=== PATIENT | male | born 1940 | race Caucasian/White ===

== ENCOUNTER 2024-02-12 09:55 | Inpatient (IN) | payer OTHER, SELFPAY ==
[2024-02-12] VITALS (13 sets, daily range): BP systolic 92–185; BP diastolic 45–174; BMI 30.5; BMI 33.2
[2024-02-12 05:11] LABS: % Basophils 0.4 % (0-2); % Eosinophils 1.1 % (0-6); % Immature Granulocytes 0.5 % (0-0.5); % Lymphocytes 4.6 % (20.5-51.1); % Monocytes 0.4 % (1.7-9.3); Absolute Eosinophils 0.1 10^3/uL (0-0.7); Absolute Lymphocytes 0.3 10^3/uL (1.2-3.4); Absolute Neutrophils 5.1 10^3/uL (1.4-6.5); Hematocrit 43.3 % (39.0-52.0); Hemoglobin 15.2 g/dL (13.0-18.0); Mean Corp Hgb Conc. 35.1 g/dL (33.0-37.0); Mean Corpuscular Hgb 31.3 pg (27.0-31.0); Mean Corpuscular Volume 89.3 fL (80.0-94.0); Mean Platelet Volume 8.8 fL (7.4-10.4); Nucleated Red Blood Cells % 0 % (-); Platelet Count 131 10^3/uL (130-400); Red Blood Cell Count 4.85 10^6/uL (4.70-6.10); Red Cell Dist. Width 13.7 % (11.5-14.5); White Blood Cell Count 5.5 10^3/uL (4.8-10.8)
[2024-02-12 05:14] LABS: Lactic Acid 3.5 mmol/L (0.7-2.0)
[2024-02-12 05:15] LABS: ALT (SGPT) 20 U/L (0-50); AST (SGOT) 26 U/L (17-59); Albumin 4.1 g/dl (3.5-5.0); Alkaline Phosphatase 51 U/L (38-126); Blood Urea Nitrogen 16 mg/dl (9-20); Calcium 9.1 mg/dl (8.4-10.2); Carbon Dioxide 21 mmol/L (22-30); Chloride 107 mmol/L (98-107); Estimated Creatinine Clearance 74 ml/min; Glucose 104 mg/dl (70-99); Potassium 3.8 mmol/L (3.5-5.1); Sodium 144 mmol/L (135-145); Total Bilirubin 1.4 mg/dl (0.2-1.3); Total Protein 6.2 g/dl (6.3-8.2); eGFR > 60.00
--- NOTE | 2024-02-12 05:30 | ED.GENMED ---
History of Present Illness
General
Chief Complaint: Fever
Source: patient, records and family
Exam Limitations: clinical condition and altered mental status
Time Seen by Provider: 02/12/24 05:12
Nursing documentation reviewed up to this point in time: agreed with
History of Present Illness
History of Present Illness:
83-year-old male lives alone apparently fell this evening getting a towel he has had urinary frequency and incontinence, tonight he apparently fell hit his head, he is confused recognizes his family, suffered from kidney stones previously has a high
fever here,
Past History
Past History
ED Past Medical History: HTN and Hypercholesterolemia
ED Past Surgical History: Urological
Social History
Tobacco: Non-smoker
Alcohol: None
Drug: None
Personal:
Living: alone
Employment: Retired
Review of Systems
Review of Systems
Unable to obtain full review of systems at this time due to: due to acuity
Other source history: family and transfer record
All Other Systems: Not applicable
Constitutional: Reports fever and fatigue
EENT: Reports no symptoms
Respiratory: Reports no symptoms
Cardiac: Reports no symptoms
ABD/GI: Reports nausea
: Reports dysuria, frequency, incontinence and urgency
Skin: Reports no symptoms
Neurological: Reports weakness
Phy Exam
Physical Exam
Physical Exam:
Physical Exam
General: Confused febrile elderly male bruise on his fourth
Neck: Dry lips
Heart: Tachycardic
Lungs: Crackles bilateral
Abdomen: Nontender
Neuro: Globally weak recognizes his daughter and grandson
Skin: no rash
Psychiatric: Disheveled but cooperative
Extremities: no edema.
Sepsis
Sepsis Screening
Sepsis Assessment: Sepsis
Sepsis Screen
Sepsis Screen: Sepsis
Date: 02/14/24
Time: 15:08
Course
Orders/Labs/Results
Orders:
Orders
02/12/24 04:54
Complete Blood Count/With Diff Urgent
Comprehensive Metabolic Panel Urgent
Lactic Acid Q4H
Comment: ON ICE, CANCEL 2ND ORDER IF FIRST LACTIC ACID LEVEL <2
02/12/24 05:23
0.9% Sodium Chloride 1000 ml [Nss] 1,000 ml IV BOLUS
Acetaminophen [Tylenol/Feverall] 650 mg RECTAL NOW STA
02/12/24 05:[address] Cervical Spine W/o Iv Contr Urgent
Comment:
Reason For Exam: fall
CT Head W/o Iv Contrast Urgent
Comment:
Reason For Exam: fall
Cardiac Monitoring- Treatment ONCE
CR Chest Portable - 1 View Urgent
Comment:
Reason For Exam: fever
Reason Study Needs to be Portable: Patient Unstable
02/12/24 05:25
CT Abd/pel Without Iv Or Oral Urgent
Comment:
Reason For Exam: uti fever
CefTRIAXone [Rocephin] 1,000 mg IV NOW STA
02/12/24 Breakfast
Cholesterol Lowering
At Your Request: Full Participation
Fluid Restriction: 1500 mL/day (50 oz)
Cholesterol Lowering: Sodium, 2 Gram
02/12/24 07:48
Lactic Acid Q4H
Comment: ON ICE, CANCEL 2ND ORDER IF FIRST LACTIC ACID LEVEL <2
Urinalysis Reflex To Culture Urgent
Date Specimen was Collected: 02/12/24
Time Specimen was Collected: 07:28
Urine Microscopic Reflex Cult Urgent
Urine Culture Urgent
FIORELLA Source: U
Specimen Description:
Date Specimen was Collected: 02/12/24
Time Specimen was Collected: 07:28
02/12/24 08:35
0.9% Sodium Chloride 1000 ml [Nss] 1,700 ml IV NOW STA
02/12/24 08:39
COVID-19 Antigen Urgent
Source: Nasal Swab
Influenza A+B Rapid Molecular Urgent
FIORELLA Source: Nasal Swab
Specimen Description:
02/12/24 09:35
Admit/Transfer Patient As Directed
Co-Sign Provider:
Level of Care: Inpatient admission
Assign to:: IMU- Intermediate Care
Physician / Group: Dr. Yohannes Champagne/Hospitalists
Diagnosis: Sepsis, Lactic Acidosis, Hypoxia
Reason for Hospitalization: Sepsis, Lactic Acidosis, Hypoxia
Expected length of stay greater than two midnights?: Yes
ELOS- Estimated Length of Stay in days: 3
I certify the patient meets the requirements for IP care: Yes
PRN Pain Medication Management As Directed
May give lesser potent ordered pain med per pt: Yes
preference::
Protocol:: Medication orders for pain may be administered in a
manner that supports deferring to patient preference
when the pt is:
- Requesting an ordered lesser potent pain medication.
Least to most potent pain medications are defined
as: acetaminophen < NSAID < tramadol < opioids
(morphine, oxycodone, hydromorphone).
- Requesting a lesser dose of the same medication IF
ORDERED.
- Requesting a less intrusive route of administration
if both routes are prescribed by the provider (PO <
IV).
02/12/24 09:37
Code Status As Directed
Resuscitation Status: Full Code
02/12/24 09:47
Electrocardiogram (*1) Routine
Reason for Study: Shortness of Breath
02/12/24 09:48
CT Chest Pe Study Routine
Comment: Shortness of breath, hypoxia, tachycardia
Reason For Exam: PE
02/12/24 09:50
Orthostatic Vital Signs As Directed
Orthostatic VS Frequency: BID
02/12/24 10:02
Bisacodyl [Dulcolax] 10 mg RECTAL [id number] PRN
Docusate W/Senna [Senokot-S] 1 tablet PO BIDPRN PRN
Finasteride [Proscar] 5 mg PO DAILY
Polyethylene Glycol Powder [Miralax] 17 grams PO DAILYPRN PRN
02/12/24 10:02
Activity As Directed
Activity Level: As Tolerated
Intake/ Output As Directed
Frequency: Per unit guidelines
Neurological Checks As Directed
Frequency: q8h
Pneumatic Compression Sleeves As Directed
Type: Knee high
Vital Signs As Directed
Frequency: Per unit guidelines
Weight As Directed
Frequency: Daily
O2 Therapy [RESP] Routine
Titrate/Wean O2 to maintain O2 sat greater than (%): 90
DX Deep Vein Thrombosis Video Routine
02/12/24 10:05
Creatine Phosphokinase Routine
NT-proBNP Routine
Troponin I Q6H
02/12/24 10:30
Fluoxetine HCl [Prozac] 40 mg PO DAILY
02/12/24 12:01
Arterial Blood Gas Routine
%Oxygen/Room Air: 90
02/12/24 15:50
Echo 2D MMode Color/Doppler Routine
Reason for Study: History of CAD with stent, now SOB, hypoxia
02/12/24 18:00
Atorvastatin [Lipitor] 40 mg PO QPM
Enoxaparin Sodium [Lovenox] 40 mg SC QPM
Lisinopril [Zestril] 5 mg PO QPM
02/12/24 22:00
Terazosin [Hytrin] 10 mg PO HS
02/12/24 22:39
Troponin I Q6H
Blood Culture Routine
FIORELLA Source: Blood/Venous
Specimen Description:
02/12/24 23:19
Blood Culture Urgent
FIORELLA Source: Blood/Venous
Specimen Description:
02/13/24 06:00
CefTRIAXone [Rocephin] 1,000 mg IV Q24H
02/13/24 08:42
Basic Metabolic Panel IN AM
Complete Blood Count/With Diff IN AM
Magnesium IN AM
TSH IN AM
Vitamin B12 IN AM
02/14/24 06:51
Basic Metabolic Panel IN AM
Complete Blood Count/With Diff IN AM
Magnesium IN AM
02/15/24 06:00
Basic Metabolic Panel IN AM
Complete Blood Count/With Diff IN AM
02/16/24 06:00
Basic Metabolic Panel IN AM
Complete Blood Count/With Diff IN AM
02/17/24 06:00
Basic Metabolic Panel IN AM
Complete Blood Count/With Diff IN AM
02/18/24 06:00
Basic Metabolic Panel IN AM
Complete Blood Count/With Diff IN AM
Abnormal Lab Results
02/12/24 02/12/24
04:54 07:48
MCH 31.3 H pg
(27.0-31.0)
Absolute Lymphs (auto) 0.3 L 10^3/uL
(1.2-3.4)
Absolute Monos (auto) 0.0 L 10^3/uL
(0.1-0.6)
Neutrophils % 93.0 H %
(42.2-75.2)
Lymphocytes % 4.6 L %
(20.5-51.1)
Monocytes % 0.4 L %
(1.7-9.3)
Carbon Dioxide 21 L mmol/L
(22-30)
Glucose 104 H mg/dl
(70-99)
Lactic Acid 3.5 H mmol/L 2.6 H mmol/L
(0.7-2.0) (0.7-2.0)
Total Bilirubin 1.4 H mg/dl
(0.2-1.3)
Total Protein 6.2 L g/dl
(6.3-8.2)
Urine Ketones 2+ A
(Negative)
Ur Occult Blood Reflex 1+ A
(Negative)
Urine Nitrite (Reflex) Positive A
(Negative)
Leukocyte Esterase Rfl 1+ A
(Negative)
Urine WBC (Reflex) 50-60 A /HPF
(0-5)
Urine Bacteria (Reflex) Many A
(Negative)
02/12/24 04:54
02/12/24 04:54
Vital Signs
Initial and Last Documented VS:
Initial Vital Signs
Temp Pulse Resp BP Pulse Ox
103.6 F H 115 30 152/88 93
02/12/24 04:45 02/12/24 04:45 02/12/24 04:45 02/12/24 04:45 02/12/24 04:45
Last Documented Vital Signs
Temp Pulse Resp BP Pulse Ox
98.8 F 93 18 140/88 97
02/14/24 11:20 02/14/24 11:30 02/14/24 11:20 02/14/24 11:20 02/14/24 11:30
MDM/Problems Addressed
Differential Diagnosis Includes:
Viral syndrome UTI ureteral stone pneumonia trauma
MDM/Problems Addressed:
Fall fever
Chronic conditions affecting care:
Kidney stone hypertension hypercholesterolemia
Acute Exacerbation and/or Progression of Chronic Illness:
Kidney stone
*Critical Care Note
Total Time (30-74mins, 75-104mins- exclusive of procedures): 30
ED Attending Note
-
Portions of this chart may have been created with voice recognition software.� Occasional wrong word or��sound alike� substitutions may have occurred due to the inherent limitations of voice recognition software.
Discharge Plan
Departure
Patient Disposition: Admit
Date of Disposition: 02/12/24
Time of Disposition: 07:22
Presentation/result/management discussed w/ accepting MD/DO: Hospitalist
Patient with high blood pressure during this ER visit?: No
Condition: Fair
Covid-19: Not Applicable
Discharge Problem:
Bacteremia
Interventions
Interventions:
*Risk Screen - Suicide Last Done: 02/12/24 04:45
*General Assessment Last Done: 02/12/24 04:45
*Neglect/Abuse Screening Last Done: 02/12/24 04:45
ED- Fall Risk Assessment Last Done: 02/12/24 15:10
*ED COVID-19 Vaccine History Last Done: 02/12/24 05:27
*Nursing Disposition Last Done: 02/12/24 15:10
ED- Neurological Assessment Last Done: 02/12/24 06:20
ED-Skin Assessment Last Done: 02/12/24 06:24
Discharge Date and Time
Discharge Date/Time: 02/12/24 15:10
[2024-02-12] MEDS: NSS 1000 IV (05:40)
[2024-02-12] MEDS: TYLENOL/FEVERALL 650 MG RECTAL (06:20)
[2024-02-12] MEDS: ROCEPHIN 1000 MG IV (06:21)
--- NOTE | 2024-02-12 08:22 | HPS.HSE ---
Family Physician
-
Family Physician: Ariadne Maravilla
Chief Complaint
-
Weakness, fall
History of Present Illness
83 y/o male from [facility], with past medical history of coronary artery disease with history of cardiac stent 30 years ago (per patient's daughter), aortic atherosclerosis, hypertension, hyperlipidemia, urinary
incontinence for the past 6 months, prostate cancer 8 to 10 years prior (as per patient's daughter), BPH, large urethral stones and bladder stones (status post cystoscopy, laser lithotripsy and extraction of urethral stones and complex
cystolithotomy in 2019) , chronic pain, osteoarthritis, constipation and anxiety, presented after a fall and weakness this morning. History was obtained from both patient's daughter Lorrie, as well as patient. Lorrie says patient called her after
falling on the floor, and called her around 3:30 am this morning, patient's daughter went to see the patient a little before 4 am. Patient had some head trauma above his right eye and reported mild headache, but no visual disturbances or any pain
with eye movement in any of his eyes. Patient denied any loss of consciousness. He denied chest pain, but did report some shortness of breath.
Medical History
Past Medical History
Past Medical History: Reports Other (As per HPI above)
Past Surgical History: Reports Orthopedic and Urological
Social History
Tobacco: Former Smoker
Alcohol: Former
Drug: None
Family History
Family History: CAD
Allergies / Home Medications
Allergies reflects when Allergies were last updated in [employer].
Home Medications with original date entered in [employer]
Allergy/Medication List:
Allergies
Allergy/AdvReac Type Severity Reaction Status Date / Time
No Known Allergies Allergy Unverified 04/03/19 19:31
Home Medications
atorvastatin 40 mg tablet 40 mg PO QPM 04/01/19
fluoxetine 40 mg capsule (Prozac) 40 mg PO DAILY 04/01/19
lisinopril 5 mg tablet 5 mg PO QPM 04/01/19
celecoxib 100 mg capsule 100 mg PO BID 02/12/24
finasteride 5 mg tablet 5 mg PO DAILY 02/12/24
terazosin 10 mg capsule 10 mg PO HS 02/12/24
Review of Systems
-
A 12 point ROS was completed and negative except as noted: Yes
Physical Exam
Vital Signs
Vital Signs
Temp Pulse Resp BP Pulse Ox
103.6 F H 115 27 127/55 94
02/12/24 04:45 02/12/24 07:30 02/12/24 07:00 02/12/24 08:01 02/12/24 07:30
Physical Exam
General: No Apparent Distress and Conversant
HEENT: NormoCephalic and Moist mucous membranes
Respiratory: Decreased Breath Sounds
Cardiac: S1/S2, Regular Rhythm and Tachycardia
GI: Soft, Non Tender and Normal Bowel Sounds
Musculoskeletal: No Cyanosis and No Edema
Skin: Warm and Dry
Neuro: Awake, Alert, AO x 3, Nonfocal/grossly intact and Cranial Nerves Intact
Psych: Calm and Intact Judgment/Insight
Laboratory Results
-
02/12/24 04:54
02/12/24 04:54
Laboratory Results
Lactic Acid 3.5 mmol/L (0.7-2.0) H 02/12/24 04:54
Total Bilirubin 1.4 mg/dl (0.2-1.3) H 02/12/24 04:54
AST 26 U/L (17-59) 02/12/24 04:54
ALT 20 U/L (0-50) 02/12/24 04:54
Alkaline Phosphatase 51 U/L (38-126) 02/12/24 04:54
Impression/Plan
-
Assessment/Plan
Presentation with weakness, fall
Sepsis with lactic acid of 3.5
Lactic Acidosis
Acute Hypoxic Respiratory Insufficiency
Dyspnea
Tachycardia
-Initial CT and CXR imaging results noted
-Suspected UTI with history of bladder stones and prostate cancer, prostatic enlargement
-Does not use or require oxygen at home, but requiring 2 L of oxygen here
-Given tachycardia, shortness of breath, hypoxia, history of cancer, check CT Chest PE protocol
-Check EKG, troponins
-ABG
-BNP, echocardiogram
-Continue empiric Rocephin for now
-Blood cultures given sepsis with initial lactic acid 3.5
-Check COVID and Flu given weakness and current seasons
-Monitor in IMU
-Orthostatic vital signs
-Neurochecks
Coronary artery disease with history of cardiac stent 30 years ago (per patient's daughter)
Aortic atherosclerosis
-Patient has not seen a churner in decades as per patient and his daughter
-Continue home statin and [place] inhibitor
-Check echo and proBNP as above
-May need cardiology consult given his SOB
Hypertension
-Continue Lisinopril
Hyperlipidemia
-Continue Atorvastatin
Urinary incontinence for the past 6 months
History of prostate cancer 8 to 10 years prior (as per patient's daughter)
Benign Prostatic Hyperplasia
-Continue home Finasteride and Terazosin
History of large urethral stones and bladder stones (status post cystoscopy, laser lithotripsy and extraction of urethral stones and complex cystolithotomy in 2019)
Chronic pain
Osteoarthritis
-Per patient's daughter patient takes Celecoxib and prn Tramadol for pain
Constipation
-Bowel regimen
Anxiety
-Continue Prozac
DVT PPx: Lovenox
Code Status: Full Code
Total time spent today on chart review, seeing and examining the patient, speaking with patient's daughter, placing orders, and documentation, was 80 minutes. And sepsis and hypoxia is a high risk encounter.
[2024-02-12 08:27] LABS: Lactic Acid 2.6 mmol/L (0.7-2.0)
[2024-02-12] MEDS: NSS 1700 ML IV (08:42)
[2024-02-12 09:02] LABS: COVID-19 Antigen Negative (Negative)
[2024-02-12 10:34] LABS: Creatine Phosphokinase 239 U/L (55-170)
[2024-02-12 10:49] LABS: NT-proBNP 622 pg/ml
[2024-02-12] MEDS: PROSCAR 5 MG PO (12:02)
[2024-02-12] MEDS: PROZAC 40 MG PO (12:02)
[2024-02-12] MEDS: ULTRAM 25 MG PO (12:03)
[2024-02-12 12:30] LABS: B.E. -3.8 mmol/L; HCO3 20.7 mmol/L (21-28); O2 Saturation % 98.3 % (94-98); PCO2 35 mmHg (35-48); PO2 92 mmHg (83-108); pH 7.38 (7.35-7.45)
[2024-02-12 12:36] LABS: Urine Albumin Negative (Neg - Trace); Urine Bilirubin Negative (Negative); Urine Character Slightly Cloudy (Clear); Urine Color Yellow; Urine Glucose Negative (Negative); Urine Ketone 2+ (Negative); Urine Leukocyte 1+ (Negative); Urine Nitrite Positive (Negative); Urine Occult Blood 1+ (Negative); Urine Urobilinogen Negative (Neg - 1+)
--- NOTE | 2024-02-12 13:12 | CONS.URO ---
Consultation
-
Performing Provider: Verafer
Reason for Consultation: Difficult michael
Medical History
History of Present Illness
83M last seen here in presenting with urethral stones and bladder stones
Patient is a poor historian and unable to provide accurate urologic history
Prior records request by Dr. Parnell was not successful
In 2019 he was taken to OR to remove urethral stones and large bladder stones causing urethral obstruction
Some urethral stricture disease was noted at that time which was found to be recurrent on a follow up office cystoscopy later and was dilated
Patient has not followed up regularly over the past few years after cancelling his last follow up to re-evaluate this stricture disease
Presented today from [facility], with past medical history of coronary artery disease with history of cardiac stent 30 years ago (per patient's daughter), aortic atherosclerosis, hypertension, hyperlipidemia, urinary
incontinence for the past 6 months, prostate cancer 8 to 10 years prior (as per patient's daughter), BPH, large urethral stones and bladder stones (status post cystoscopy, laser lithotripsy and extraction of urethral stones and complex
cystolithotomy in 2019) , chronic pain, osteoarthritis, constipation and anxiety, presented after a fall and weakness this morning.
Of note he has had worsening difficulty urinating over the past several days and today has not been able to void at all
CT scan was performed which demonstrated multiple stones within the membranous urethra
Nurses were unable to straight cath at bedside and urology was consulted
He was septic with high fever in the ED and being admitted for workup
Past Medical History
Past Medical History: Other (as above)
Past Surgical History: Other (as above)
Social History
Tobacco: Non-smoker
Alcohol: None
Drug: None
Family History
Family History: Reviewed & Not Pertinent
Allergies/Home Medications
Allergies
Allergy/AdvReac Type Severity Reaction Status Date / Time
No Known Allergies Allergy Unverified 04/03/19 19:31
Home Medications
�Medication �Instructions �Recorded �Confirmed �Type
atorvastatin 40 mg tablet 40 mg PO QPM 04/01/19 02/12/24 History
fluoxetine 40 mg capsule (Prozac) 40 mg PO DAILY 04/01/19 02/12/24 History
lisinopril 5 mg tablet 5 mg PO QPM 04/01/19 02/12/24 History
celecoxib 100 mg capsule 100 mg PO BID 02/12/24 02/12/24 History
finasteride 5 mg tablet 5 mg PO DAILY 02/12/24 02/12/24 History
terazosin 10 mg capsule 10 mg PO HS 02/12/24 02/12/24 History
Physical Exam
Vital Signs
Vital Signs
Temp Pulse Resp BP Pulse Ox
103.6 F H 100 27 92/45 96
02/12/24 04:45 02/12/24 13:00 02/12/24 07:00 02/12/24 13:00 02/12/24 13:00
Lab / Testing Results
Laboratory Results
02/12/24 04:54
02/12/24 04:54
Physical Exam
General: Well Developed, Well Nourished and Other (distress, unable to void)
HEENT: Normocephalic
Respiratory: Wheezes and Other (tachypnea)
GI: Soft and Non Tender
Genito-urinary: Other (SP fullness)
Skin: Warm and Dry
Neuro: Awake and Alert
Psych: Agitated
Assessment / Plan
-
83M with past hx of urethral and bladder stones s/p removal in 2019, admitted with sepsis after a fall at home
Worsening ability to empty his bladder and in urinary retention on day of admission
Found to have recurrent urethral stones
- 18Fr coude catheter placed at bedside without significant resistance
- Urinalysis and culture
- Urinary retention and urosepsis seem likely candidates for cause of patient's acute illness and fall
- Continue broad spectrum antibiotics
Plan for likely discharge with michael in place to arrange outpatient stone removal
Urethral stricture
- Previously seen on office cystoscopy and likely contributor to obstruction by stones
Prostate cancer
- Previously unknown part of medical history given by patient's daughter
- Unknown treatment history
- Obtain PSA
[2024-02-12 13:46] LABS: Urine Mucus Many; Urine Squamous Cell >30 /LPF (Few)
[2024-02-12 13:47] LABS: Urine Amorphous Seen
[2024-02-12 13:48] LABS: Urine Bacteria Many (Negative); Urine Red Blood Cell 0-2 /HPF (0-2); Urine White Cell 50-60 /HPF (0-5)
--- NOTE | 2024-02-12 14:40 | CARDSERVLU ---
Echocardiogram with Lumason completed after protocol screening completed. Allergies verified.
Patent IV site: _Rt FA____
IV site flushed with 0.9% NaCl pre and post administration.
Diluted bolus method utilized to enhance visualization of ventricular king[place].
Total volume given: ___2.5_ mL
Patient tolerated all procedures well without complications.
[2024-02-12] MEDS: ZOFRAN 4 MG IV (15:41)
[2024-02-12] MEDS: ULTRAM 75 MG PO ×2 (16:05→22:05)
[2024-02-12] MEDS: LIPITOR 40 MG PO (16:06)
[2024-02-12] MEDS: LOVENOX 40 MG SC (16:06)
[2024-02-12] MEDS: ZESTRIL 5 MG PO (16:06)
[2024-02-12] MEDS: TYLENOL 650 MG PO (19:33)
[2024-02-12] MEDS: LIDOCAINE 4% PATCH 1 PATCH TOPICAL (20:40)
[2024-02-12] MEDS: HYTRIN 10 MG PO (21:29)
[2024-02-12 23:16] LABS: Troponin I 0.056 ng/ml
[2024-02-12 23:39] LABS: Lactic Acid 1.5 mmol/L (0.7-2.0)
[2024-02-13] VITALS (8 sets, daily range): BP systolic 104–150; BP diastolic 55–90; PULSE 83–95; O2SAT 95; BMI 33.0
[2024-02-13] MEDS: ULTRAM 75 MG PO ×4 (04:30→22:13)
[2024-02-13] MEDS: ROCEPHIN 1000 MG IV (04:31)
[2024-02-13] MEDS: STERILE WATER FOR INJECTION 10 ML IV ×3 (04:32→23:29)
[2024-02-13] MEDS: LIDOCAINE 4% PATCH 1 PATCH TOPICAL (08:12)
[2024-02-13] MEDS: PROSCAR 5 MG PO (08:13)
[2024-02-13] MEDS: PROZAC 40 MG PO (08:13)
[2024-02-13] MEDS: TYLENOL 650 MG PO ×2 (08:14→20:28)
[2024-02-13 09:14] LABS: % Basophils 0.3 % (0-2); % Eosinophils 0.3 % (0-6); % Immature Granulocytes 0.7 % (0-0.5); % Lymphocytes 2.8 % (20.5-51.1); % Monocytes 6.2 % (1.7-9.3); % Neutrophils 89.7 % (42.2-75.2); Absolute Basophils 0.1 10^3/uL (0-0.2); Absolute Eosinophils 0.1 10^3/uL (0-0.7); Absolute Immature Granulocytes 0.1 10^3/uL (0-0.05); Absolute Lymphocytes 0.6 10^3/uL (1.2-3.4); Absolute Monocytes 1.3 10^3/uL (0.1-0.6); Absolute Neutrophils 18.9 10^3/uL (1.4-6.5); Hematocrit 38.4 % (39.0-52.0); Hemoglobin 13.6 g/dL (13.0-18.0); Mean Corp Hgb Conc. 35.4 g/dL (33.0-37.0); Mean Corpuscular Hgb 31.9 pg (27.0-31.0); Mean Corpuscular Volume 89.9 fL (80.0-94.0); Mean Platelet Volume 9.5 fL (7.4-10.4); Nucleated Red Blood Cells % 0 % (-); Platelet Count 105 10^3/uL (130-400); Red Blood Cell Count 4.27 10^6/uL (4.70-6.10); White Blood Cell Count 21.1 10^3/uL (4.8-10.8)
[2024-02-13 09:18] LABS: Troponin I 0.039 ng/ml
--- NOTE | 2024-02-13 09:23 | PTCARENOTE ---
Patient received restless with complaints of shortness of breath, pulse ox 100% on o2 at 4LPM via Nasal Cannula. Hospitalist notified, ordered chest x ray and resp to see him .
Trop from 0842 today is 0.038, hospitalist aware
[2024-02-13] MEDS: DUONEB 3 ML INH ×3 (09:59→19:21)
--- NOTE | 2024-02-13 10:29 | CON.CAR ---
Addendum entered and electronically signed by Jaleesa Richard MD 02/13/24 12:41:
I saw and examined the patient.
The resident's note was reviewed and I agree with the note. I added additional edits in italics below.
Comment: 83-year-old with a history of remote CAD, hypertension, hyperlipidemia, BPH and urethral/bladder stones presented with a mechanical fall followed by shortness of breath. He was found to have urosepsis. He has been treated as such. We are
asked to comment on persistent shortness of breath. His daughter is at the bedside and states that this is new today. He reports feeling short of breath if he lies flat but feels fine lying on his side. He is complaining of intense lower back and
sciatica pain. No chest pain or pressure. He is not coughing. On exam, he appears in moderate distress with an increased respiratory rate using abdominal muscles to breathe. He has a regular rate and rhythm with a normal S1-S2. He had crackles
at the right mid field and lower field while lying on his right side, these improved but did not completely resolve with inspiration. JVP is difficult to assess due to body habitus. He has no peripheral edema. Abdomen is obese, chest x-ray today
shows poor inspiratory effort on my review with interstitial crowding suspicious for heart failure. EKG is sinus tachycardia. Overall, today he is in new respiratory distress. Multiple etiologies are still possible. He does not appear markedly
volume overloaded on exam but chest x-ray does support some degree of volume overload. Will give a dose of IV Lasix and reassess. He may also have infectious etiology versus pain driving up his respiratory rate. He was placed on oxygen but I do
not see documentation of hypoxia. Can continue for comfort. Echocardiogram did not show gina evidence of volume overload, he had a normal EF, normal IVC. Right heart pressures were not able to be estimated. proBNP was not supportive of heart
failure either. Will reassess response to therapy. Otherwise he had a mildly elevated troponin due to nonischemic myocardial injury in the setting of sepsis. However I would recommend starting a baby aspirin given her reported history of stents
years ago.
Otherwise will follow.
Original Note:
Documented by User: Heba Araceli, MD, Resident 02/13/24 11:47
Consultation
Consultation Request
Date/Time Consultation Requested: 02/13/24
Date/Time Consultation Performed: 02/13/24
Requesting Provider: Dr Jaleesa Rubin
Performing Provider: Dr Vinod Charles
Reason for Consultation: dyspnea
Medical History
-
History of Present Illness:
83 year old male with history of CAD s/p stent placed 30 years ago, urethral and bladder stones, HTN, HLD, BPH presented with weakness and a fall. Patient states that he got up from the bed, felt warm, weak and dizzy and had a fall. He denies LOC.
He reports shortness of breath. He required 2L of oxygen initially and now on 4L. He reports of urinary incontinence for past 6 months. He denies CP. Due to tachycardia, respiratory distress and leukocytosis, full sepsis work up was done. Urine
culture grew gram negative bacilli, BC pending. Labs reveal leukocytosis, lactic acid 1.5, creat 0.5, K 3.8. He has received 2.4 L of fluids since admission.
Past Medical History
Past Medical History: CAD (coronary angioplasty with stent placed 30 years ago ), HTN, Hypercholesterolemia and Other (bladder and urethral stones )
Past Surgical History: Urological (bladder stones (status post cystoscopy, laser lithotripsy and extraction of urethral stones and complex cystolithotomy in 2019))
Social History
Tobacco: Former Smoker (quit 30 years ago )
Alcohol: Former (quit 30 years ago )
Drug: None
Living: Alone
Family History
Family History: Reviewed & Not Pertinent
Allergies / Home Medications
Allergy/AdvReac Type Severity Reaction Status Date / Time
No Known Allergies Allergy Unverified 04/03/19 19:31
�Medication �Instructions �Recorded �Confirmed �Type
atorvastatin 40 mg tablet 40 mg PO QPM 04/01/19 02/12/24 History
fluoxetine 40 mg capsule (Prozac) 40 mg PO DAILY 04/01/19 02/12/24 History
lisinopril 5 mg tablet 5 mg PO QPM 04/01/19 02/12/24 History
celecoxib 100 mg capsule 100 mg PO BID 02/12/24 02/12/24 History
finasteride 5 mg tablet 5 mg PO DAILY 02/12/24 02/12/24 History
terazosin 10 mg capsule 10 mg PO HS 02/12/24 02/12/24 History
Review of Systems
-
All other systems: Negative unless noted
Respiratory: Trouble Breathing
Physical Exam
Vital Signs
Temp Pulse Resp BP Pulse Ox
98.4 F 92 14 120/55 96
02/13/24 07:30 02/13/24 10:03 02/13/24 10:03 02/13/24 03:21 02/13/24 10:03
Lab Results
02/13/24 08:42
Troponin I 0.039 ng/ml H* 02/13/24 08:42
Vpd-E-Qpymrkfkujl Pept 622 pg/ml 02/12/24 10:05
Physical Exam
General: Respiratory Distress (on 4 L O2)
HEENT: Normocephalic and Anicteric
Respiratory: Crackles (left bases) and Other (diminished breath sounds, abdominal breathing, cannot complete a full sentence without being SOB )
Cardiac: S1/S2 and Regular Rhythm; Negative Murmur or JVD
GI: Soft
Genito-urinary: Other (michael's catheter )
Musculoskeletal: No Edema
Neuro: AO x 3
Psych: Calm
Impression / Plan
-
83 year old male with history of CAD, urethral and bladder stones s/p cystoscopy, laser lithotripsy and extraction of urethral stones and complex cystolithotomy in 2019, prostate cancer, presented with sepsis secondary to UTI. Cardiology is
consulted for persistent shortness of breath with increase oxygen requirement.
Impression
Acute respiratory distress
Sepsis secondary to UTI
Plan and assessment
Acute hypoxic respiratory distress
D/D: pulmonary etiology ?
possible volume overload with fluid resuscitation for sepsis
-On 4 L of O2
-Will start on IV Lasix 40 mg daily
- Echo is reassuring with IVC of normal size and demonstrates normal respiratory variation.
-No JVD on exam, LVEF 50-55%.
-Monitor urine output.
Sepsis secondary to UTI
Positive UC with gram negative bacilli
BC pending
On IV ceftriaxone and IV vancomycin
Lactic acid level decreased to 1.5
Data Reviewed
-
EKG: Tracing Personally Visualized and interpreted, Report Reviewed by me and Discussed with Physician
Radiology: Image Personally Visualized and interpreted, Report Reviewed by me and Discussed with Physician
CT Scan: Image Personally Visualized and interpreted and Discussed with Physician
Labs: Labs Reviewed by me and Discussed with Physician

Documented by User: Jaleesa Richard MD 02/13/24 12:33
Impression / Plan
-
83 year old male with history of CAD, urethral and bladder stones s/p cystoscopy, laser lithotripsy and extraction of urethral stones and complex cystolithotomy in 2019, prostate cancer, presented with sepsis secondary to UTI. Cardiology is
consulted for persistent shortness of breath with increase oxygen requirement.
Attending edits in Italics
Impression
Acute respiratory distress
Sepsis secondary to UTI
Plan and assessment
Acute hypoxic respiratory distress
D/D: pulmonary etiology ?
possible volume overload with fluid resuscitation for sepsis : volume assessment limited by bodyhabitus but CT/CXR appear consistent with pulmonary edema. BNP does not support
patient with significant back pain that is worsened and may be adding to tachypnea
-On 4 L of O2
-Will start on IV Lasix 40 mg daily
- Echo is reassuring with IVC of normal size and demonstrates normal respiratory variation.
- LVEF 50-55%.
-Monitor urine output.
Sepsis secondary to UTI
Positive UC with gram negative bacilli
BC pending
On IV ceftriaxone and IV vancomycin
Lactic acid level decreased to 1.5
Nonischemic myocardial injury in the setting of sepsis:
No chest pain, EKG without changes.
CAD: Chronic, given history of remote stenting would add aspirin 81 mg a day. Continue medical management.
--- NOTE | 2024-02-13 10:54 | W.PN.HOSP.TC ---
Today's Communication/Plan
-
Continue antibiotics, IV diuresis, Duonebs
Assessment / Plan
Assessment / Plan
Physical Exam
General: No Apparent Distress and Conversant
HEENT: Normocephalic and Moist mucous membranes
Respiratory: Decreased Breath Sounds, Mild Wheezing, Crackles
Cardiac: S1/S2, Regular Rate and Rhythm
GI: Soft, Non Tender and Normal Bowel Sounds
Musculoskeletal: No Cyanosis and No Edema
Skin: Warm and Dry
Neuro: Awake, Alert, AO x 3, Nonfocal/grossly intact and Cranial Nerves Intact
Psych: Calm and Intact Judgment/Insight
Assessment/Plan
Presentation with weakness, fall
Complicated urinary tract infection
Leukocytosis
Sepsis
Lactic Acidosis - RESOLVED
Acute Hypoxic Respiratory Insufficiency
Dyspnea
Tachycardia
-Initial CT and Chest X-Ray imaging results noted
-Suspected UTI with history of bladder stones and prostate cancer, prostatic enlargement
-Does not use or require oxygen at home, but requiring 4 L of oxygen here
-Given tachycardia, shortness of breath, hypoxia, history of cancer, checked CT Chest PE --> no PE
-BNP, echocardiogram
-Continue Cefepime (status post Rocephin) -- appreciate ID
-Blood cultures
-Urine culture growing gram negative bacilli
-COVID and Flu tests negative
-Orthostatic vital signs
-Neuro-checks
-Per urology: Plan for discharge with Kiran in place to complete antibiotic course, and outpatient follow up for cystoscopy and stone removal procedure
Coronary artery disease with history of cardiac stent 30 years ago (per patient's daughter)
Aortic atherosclerosis
-Patient has not seen a body team member in decades as per patient and his daughter
-Continue home statin and [place] inhibitor
-Echo noted
-Appreciate cardiology, IV Lasix given pulmonary edema
-Aspirin 81 mg daily recommended by body team member --> will start
Wheezing
SOB
-Appreciate pulmonary and cardiology
Hypertension
-Continue Lisinopril
Hyperlipidemia
-Continue Atorvastatin
Urinary incontinence for the past 6 months
History of prostate cancer 8 to 10 years prior (as per patient's daughter)
Benign Prostatic Hyperplasia
-Continue home Finasteride and Terazosin
History of large urethral stones and bladder stones (status post cystoscopy, laser lithotripsy and extraction of urethral stones and complex cystolithotomy in 2019)
Chronic pain
Osteoarthritis
-Per patient's daughter patient takes Celecoxib and prn Tramadol for pain
Constipation
-Bowel regimen
Anxiety
-Continue Prozac
DVT Prophylaxis: Lovenox
Code Status: Full Code
Total time spent today on chart review, seeing and examining the patient, speaking with patient's daughter/family, reviewing orders, consulting specialists and documentation, was 55 minutes.
Anticipated Discharge: 24 - 48 hours
Subjective/Interval History
-
Date of Service: February 13, 2024
Patient was seen and examined. He was more short of breath this morning with some wheezing which improved after treatment.
Objective Data
-
Labs:
Laboratory Results
02/13/24
08:42
WBC 21.1 H
Hgb 13.6
Hct 38.4 L
Plt Count 105 L
Sodium Pending
Potassium Pending
Chloride Pending
Carbon Dioxide Pending
BUN Pending
Creatinine Pending
Glucose Pending
Calcium Pending
Vital Signs:
Vital Signs
Temp Pulse Resp BP Pulse Ox
98.4 F 92 14 120/55 96
02/13/24 07:30 02/13/24 10:03 02/13/24 10:03 02/13/24 03:21 02/13/24 10:03
I&O
02/12/24 02/13/24 02/14/24
06:59 06:59 06:59
Intake Total 240 / 240
Output Total 400 / 400
Balance -160 / -160
[2024-02-13 11:31] LABS: PSA, Total - Diagnostic 2.22 ng/ml (0.0-4.0); TSH 1.64 uIU/ml (0.47-4.68)
[2024-02-13 11:34] LABS: Blood Urea Nitrogen 16 mg/dl (9-20); Calcium 8.6 mg/dl (8.4-10.2); Carbon Dioxide 22 mmol/L (22-30); Chloride 105 mmol/L (98-107); Estimated Creatinine Clearance 85 ml/min; Glucose 88 mg/dl (70-99); Magnesium 1.7 mg/dl (1.6-2.3); Potassium 3.7 mmol/L (3.5-5.1); Sodium 140 mmol/L (135-145); eGFR > 60.00
--- NOTE | 2024-02-13 11:39 | CON.PUL ---
Consultation
Consultation Request
Date/Time Consultation Requested: 02/13/24
Date/Time Consultation Performed: 02/13/24
Reason for Consultation: Hypoxia
Medical History
-
History of Present Illness:
History obtained from the chart. Patient is an 82-year-old male with history of hypertension, chronic urological issues, nephrolithiasis who was brought to [facility] by family. Per ED records, patient apparently fell and hit his head, was
confused along with urinary incontinence. Upon arrival, temperature 103.6, pulse 115, breathing at 30, blood pressure 152/88, 93%. Patient was found to have increased oxygen requirement and abnormal chest x-ray. We are asked to comment on
pulmonary process 02/13/2024
.
PMH: Coronary disease with history of stent 2000 in [place], hypertension, hypercholesterolemia, urinary incontinence, history of prostate cancer around 2014, BPH, nephrolithiasis with laser lithotripsy in the past, osteoarthritis
Past Medical History
Past Medical History: None (See above)
Past Surgical History: None (See above)
Social History
Tobacco: Former Smoker (30py, quit 1989)
Alcohol: Former (quit 30 yrs)
Drug: None
Personal:
Living: Alone
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
Family History
Family History: Other (Family history negative for blood clots, lung cancer, lung disease)
Allergies / Home Medications
Allergies
Allergy/AdvReac Type Severity Reaction Status Date / Time
No Known Allergies Allergy Unverified 04/03/19 19:31
Home Medications
�Medication �Instructions �Recorded �Confirmed �Last Taken �Type
atorvastatin 40 mg tablet 40 mg PO QPM 04/01/19 02/12/24 04/02/19 15:00 History
fluoxetine 40 mg capsule (Prozac) 40 mg PO DAILY 04/01/19 02/12/24 04/03/19 07:00 History
lisinopril 5 mg tablet 5 mg PO QPM 04/01/19 02/12/24 04/02/19 15:00 History
celecoxib 100 mg capsule 100 mg PO BID 02/12/24 02/12/24 Unknown History
finasteride 5 mg tablet 5 mg PO DAILY 02/12/24 02/12/24 Unknown History
terazosin 10 mg capsule 10 mg PO HS 02/12/24 02/12/24 Unknown History
Review of Systems
-
All other systems: Negative unless noted
Vitals / Labs / Diagnostic Testing
Vital Signs
Temp Pulse Resp BP Pulse Ox
98.4 F 92 14 120/55 96
02/13/24 07:30 02/13/24 10:03 02/13/24 10:03 02/13/24 03:21 02/13/24 10:03
Lab Data
02/13/24 08:42
Laboratory Results
02/12/24
12:01
pH 7.38
pCO2 35
pO2 92
HCO3 20.7 L
O2 Delivery Level
Microbiology
02/12/24 07:48 Urine Urine Culture - Preliminary
Gram negative bacilli
02/12/24 08:39 Nasal Swab Influenza Types A & B (CRESCENCIO) - Final
Negative for Influenza A & B, NAAT
Negative results must be combined with clinical observations
and patient history.
Nucleic Acid Amplification test (NAAT)performed on the
[employer] platform.
Diagnostic Testing:
Physical Exam
-
HEENT: Normocephalic and Anicteric
Cardiovascular: S1/S2, Regular Rhythm, Murmur (n), Rub (n), Peripheral Edema (n) and Calf Tenderness (n)
Respiratory: Wheeze (n), Rales (Resolved), Rhonchi (n) and Non-Labored Respirations
GI: Soft, Non Distended (Obese) and Non Tender
Neurology: Awake, Alert and No Motor Deficits (Moves all extremities, able to sit up with minimal assistance)
Skin: Good Color
General: Comfortable
Assessment
-
83-year-old male with history of hypertension, distant history of prostate cancer coronary disease with stent 22 years ago, with mechanical fall. Patient found to have possible UTI but developed increased oxygen requirement with chest x-ray
suggestive of heart failure. We are asked to comment on pulmonary process
Bilateral interstitial changes
Suspected pulmonary edema
Status post mechanical fall
Likely due to weakness
Suspected UTI, positive urine culture
Abnormal UA
Elevated troponin
Sinus tachycardia
Conditions present prior to admission
Coronary disease history of stent
[id number] history of smoking, quit 1989
Former alcohol use, quit
Suspected sleep disordered breathing
Plan/recommendations
Reviewed clinical course.
CT chest negative for PE
Mildly elevated troponin noted
Chest x-ray suggestive of pulm edema but cannot rule out infectious process
Records suggest crackles earlier in the day.
Presently crackles have resolved following diuresis
Moving forward
We will obtain PA and lateral x-ray 02/13/2024
Echocardiogram and cardiology correspondence does not suggest significant cardiomyopathy or evidence of heart failure
However, patient did receive 2-1/2 L of fluid since admission. This may have contributed to her pulmonary edema
There may have been a component of diastolic dysfunction
Will continue with antibiotics for now although patient does not have any symptoms to suggest acute infectious process
Consider discontinuing within 24 hours
Reviewed with daughter by phone and patient
Will follow
[2024-02-13] MEDS: LASIX 40 MG IV (11:46)
[2024-02-13 11:50] LABS: Vitamin B12 413 pg/ml (239-931)
--- NOTE | 2024-02-13 12:37 | CM ---
Patient seen bedside with daughterLorrie, and son in [place], initial assessment completed. Patient resides at [facility]. Patient uses a walker for ambulation, is currently on O2, is not on home O2. Patient denies VN or SNF history,
would be agreeable to VN upon discharge. Patients daughter and son live nearby and check on patient frequently. Patient PCP Ariadne Maravilla, pharmacy [facility], confirms prescription coverage. Patient denies insecurities at home. CM will watch for
PT/OT evals. CM will continue to follow for all discharge planning needs.
Plan; home with VN, watch for PT/OT evals.
[2024-02-13] MEDS: LOVENOX 40 MG SC (16:09)
[2024-02-13] MEDS: LIPITOR 40 MG PO (16:10)
[2024-02-13] MEDS: ZESTRIL 5 MG PO (16:21)
--- NOTE | 2024-02-13 16:49 | CON.ID ---
Consultation
-
Date/Time Consultation Requested: 02/13/2024 0942
Date/Time Consultation Performed: 02/13/2024 1640
Requesting Provider: Dr. Champagne
Performing Provider: Dr. Dunn
Reason for Consultation: Leukocytosis; suspected sepsis
Chief Complaint / Past History
History of Present Illness
Victor Manuel Schulz is an 83-year-old man being evaluated at the request of Dr. Champagne in regards to suspected sepsis. History is obtained from chart review, along with patient interview.
The patient presented to [facility] on 02/12/2024 from [facility]. According to reviewed records the patient sustained a fall early in the morning, and was found by his daughter around 4 AM with trauma above his
right eye. Patient denied loss of consciousness, but did admit to some shortness of breath.
Additionally, the patient is reported to have had increased difficulty in urination over the prior several days, and notes indicate the patient was unable to void on the day of admission. Urine cultures obtained at admission are now positive for
gram-negative rods, and Infectious Diseases is asked to comment on further antimicrobial management.
Past History
Additional Past Medical History:
CAD
HTN
Dyslipidemia
Urinary incontinence
Hx prostate CA
BPH
Bladder stones
Nephrolithiasis
Chronic pain
Osteoarthritis
Anxiety
Additional Past Surgical History:
PTCA with stenting
Lithotripsy
Allergy History:
No Known Allergies Allergy (Unverified 04/03/19 19:31)
Medications Reviewed: Yes
Current Antibiotics:
Vancomycin
Ceftriaxone
Social History
Tobacco: Former Smoker
Alcohol: Former
Drug: None
Living: Alone (Independent living facility)
Employment: Retired
Family History
Family History: Not Pertinent
Review of Systems
Vital Signs
Temp Pulse Resp BP Pulse Ox
98.2 F 92 16 146/78 100
02/13/24 15:14 02/13/24 15:14 02/13/24 15:14 02/13/24 15:14 02/13/24 15:14
Physical Exam
Physical Exam
Constitutional: No Acute Distress, Comfortable, Chronically Ill and Non-toxic
Head: Normocephalic
Eyes: Pupils Equal, Pupils Round, No Conjunctival Hemorrhage and Sclera Anicteric
Oral: No Thrush and No Ulcers
Cardiovascular: Regular Rate and S1/S2; Negative S3/S4 or Murmur
Pulmonary: Clear; Negative Wheezes, Rales or Rhonchi
Gastrointestinal: Soft, Non Tender, Non Distended, Normal Bowel Sounds, No Rebound and No Guarding
Genito-Urinary: Kiran and Clear Urine; Negative CVA Tenderness, Turbid Urine or Hematuria
Extremities: Negative Edema, Cyanosis or Erythema
Neurological: Awake and Alert
Psychological: Calm
Lab / Diagnostic Study Results
02/13/24 08:42
02/13/24 08:42
Abs Immat Gran (auto) 0.1 10^3/uL (0-0.05) H 02/13/24 08:42
Absolute Neuts (auto) 18.9 10^3/uL (1.4-6.5) H 02/13/24 08:42
Absolute Lymphs (auto) 0.6 10^3/uL (1.2-3.4) L 02/13/24 08:42
Absolute Monos (auto) 1.3 10^3/uL (0.1-0.6) H 02/13/24 08:42
Absolute Basos (auto) 0.1 10^3/uL (0-0.2) 02/13/24 08:42
Immature Gran % 0.7 % (0-0.5) H 02/13/24 08:42
Neutrophils % 89.7 % (42.2-75.2) H 02/13/24 08:42
Lymphocytes % 2.8 % (20.5-51.1) L 02/13/24 08:42
Monocytes % 6.2 % (1.7-9.3) 02/13/24 08:42
Eosinophils % 0.3 % (0-6) 02/13/24 08:42
Basophils % 0.3 % (0-2) 02/13/24 08:42
Lactic Acid 1.5 mmol/L (0.7-2.0) 02/12/24 23:19
Ur Squamous Epith Cells >30 /LPF (Few) 02/12/24 07:48
Microbiology Results
Micro:
02/12/24 07:48 Urine Culture - Preliminary
Urine Gram negative bacilli
02/12/24 23:19 Blood Culture - Pending
Blood/Venous
02/12/24 22:39 Blood Culture - Pending
Blood/Venous
02/12/24 08:39 Influenza Types A & B (CRESCENCIO) - Final
Nasal Swab Negative for Influenza A & B, NAAT
Negative results must be combined with clinical observations
and patient history.
Nucleic Acid Amplification test (NAAT)performed on the
[employer] platform.
Imaging:
02/12/2024 CT abdomen/pelvis without contrast: No significant acute abnormality identified in the abdomen or pelvis. No enlarged lymph nodes, free fluid or free air. Diverticulosis is noted without evidence for diverticulitis. Tiny nonobstructing
lower pole left renal calculus measuring up to 4 mm is noted. No hydronephrosis seen. Spleen, adrenal glands and pancreas are unremarkable. Please see full dictation for additional detail.
Assessment / Plan
Complicated urinary tract infection
Leukocytosis
Obstructive uropathy
Fever
CAD
HTN
Dyslipidemia
Urinary incontinence
Hx prostate CA
BPH
Bladder stones
Nephrolithiasis
Chronic pain
Osteoarthritis
Anxiety
Recommendations:
CT reviewed and shows no upper obstructive uropathy at present. Patient is now decompressed with Kiran catheter in place.
Urine culture showing negative rods.
Discontinue further vancomycin.
Transition to cefepime pending further culture data.
Monitor white count temperature curve.
Further recommendations as additional data is returned.
--- NOTE | 2024-02-13 17:04 | W.PN.URO.CBU ---
Today's Communication / Plan
-
Continue antibiotics
Treatment course per ID
Discharge with michael in place
Outpatient follow up after discharge
Assessment / Plan
-
83M with past hx of urethral and bladder stones s/p removal in 2019, admitted with sepsis after a fall at home
Worsening ability to empty his bladder and in urinary retention on day of admission
Found to have recurrent urethral stones
- 18Fr coude catheter placed at bedside without significant resistance
- Urinalysis positive and cultures pending
- Urinary retention and urosepsis seem likely candidates for cause of patient's acute illness and fall
- Continue broad spectrum antibiotics
Plan for discharge with michael in place to complete antibiotic course
Outpatient follow up for cystoscopy and stone removal procedure
Urethral stricture
- Previously seen on office cystoscopy and likely contributor to obstruction by stones
Prostate cancer
- Previously unknown part of medical history given by patient's daughter
- Unknown treatment history
- PSA 2.2 - unknown if this represents recurrent disease
- To get past records outpatient
Diagnosis
-
Date of Service: February 13, 2024
-
Patient Diagnosis:
Urinary retention
urethral calculi
UTI
Sepsis
Post Op Day:
Subjective
-
Feels bad today
Michael well tolerated
Objective
-
Vital Signs
Temp Pulse Resp BP Pulse Ox
98.2 F 92 16 146/78 100
02/13/24 15:14 02/13/24 15:14 02/13/24 15:14 02/13/24 15:14 02/13/24 15:14
Intake and Output
02/12/24 02/13/24 02/14/24
06:59 06:59 06:59
Intake Total 240 / 240
Output Total 400 / 400
Balance -160 / -160
Intake:
Oral fluids 240 / 240
Output:
Urine, Michael 400 / 400
Laboratory Results
02/13/24 08:42
02/13/24 08:42
Physical Exam
-
General - well developed, well nourished, no acute distress
Chest - clear bilaterally
Abdomen - soft, non-tender
Michael in place clear yellow
[2024-02-13] MEDS: MAXIPIME 1000 MG IV ×2 (17:49→23:28)
[2024-02-13 21:19] LABS: Troponin I 0.032 ng/ml
[2024-02-13] MEDS: HYTRIN 10 MG PO (22:13)
[2024-02-14] VITALS (7 sets, daily range): BP systolic 99–144; BP diastolic 62–88; PULSE 99–123; BMI 30.8
[2024-02-14] MEDS: MAXIPIME 1000 MG IV ×2 (05:00→12:13)
[2024-02-14] MEDS: STERILE WATER FOR INJECTION 10 ML IV ×2 (05:00→12:12)
[2024-02-14] MEDS: DUONEB 3 ML INH ×4 (07:29→19:20)
[2024-02-14] MEDS: LASIX 40 MG IV (07:57)
[2024-02-14] MEDS: PROZAC 40 MG PO (07:58)
[2024-02-14] MEDS: PROSCAR 5 MG PO (07:58)
[2024-02-14] MEDS: LIDOCAINE 4% PATCH 1 PATCH TOPICAL (07:58)
[2024-02-14] MEDS: LOW STRENGTH ASPIRIN 81 MG PO (07:58)
[2024-02-14 08:08] LABS: Blood Urea Nitrogen 18 mg/dl (9-20); Calcium 8.8 mg/dl (8.4-10.2); Carbon Dioxide 28 mmol/L (22-30); Chloride 102 mmol/L (98-107); Estimated Creatinine Clearance 82 ml/min; Glucose 94 mg/dl (70-99); Magnesium 1.9 mg/dl (1.6-2.3); Potassium 3.4 mmol/L (3.5-5.1); Sodium 139 mmol/L (135-145); eGFR > 60.00
[2024-02-14 08:09] LABS: % Basophils 0.4 % (0-2); % Eosinophils 1.3 % (0-6); % Lymphocytes 4.8 % (20.5-51.1); % Monocytes 8.3 % (1.7-9.3); % Neutrophils 84.2 % (42.2-75.2); Absolute Basophils 0.1 10^3/uL (0-0.2); Absolute Eosinophils 0.2 10^3/uL (0-0.7); Absolute Immature Granulocytes 0.2 10^3/uL (0-0.05); Absolute Lymphocytes 0.7 10^3/uL (1.2-3.4); Absolute Monocytes 1.2 10^3/uL (0.1-0.6); Absolute Neutrophils 12.6 10^3/uL (1.4-6.5); Hematocrit 37.8 % (39.0-52.0); Hemoglobin 13.1 g/dL (13.0-18.0); Mean Corp Hgb Conc. 34.7 g/dL (33.0-37.0); Mean Corpuscular Hgb 30.3 pg (27.0-31.0); Mean Corpuscular Volume 87.3 fL (80.0-94.0); Mean Platelet Volume 10.2 fL (7.4-10.4); Nucleated Red Blood Cells % 0 % (-); Platelet Count 110 10^3/uL (130-400); Red Blood Cell Count 4.33 10^6/uL (4.70-6.10); Red Cell Dist. Width 13.9 % (11.5-14.5); White Blood Cell Count 14.9 10^3/uL (4.8-10.8)
--- NOTE | 2024-02-14 08:13 | W.PN.CD ---
Today's Communication / Plan
-
continue IV diuresis
start aldactone q12.5mg daily
fluid restrication of 1500cc
Impression / Plan
-
83 year old male with history of CAD, urethral and bladder stones s/p cystoscopy, laser lithotripsy and extraction of urethral stones and complex cystolithotomy in 2019, prostate cancer, presented with sepsis secondary to UTI. Cardiology is
consulted for persistent shortness of breath with increase oxygen requirement.
HFpEf: acute
-improved with IVdiuresis which requires intensive monitoring
-continue ACEI
-will add MRA--spironolactone 12.5mg daily
-no sglt2i with UTI
Nonischemic myocardial injury in the setting of sepsis:
No chest pain, EKG without changes.
CAD: Chronic, given history of remote stenting would add aspirin 81 mg a day. Continue medical management.
Sepsis secondary to UTI
HTN: chronic, stable
Sepsis due to UTI:
-per medicine and urology
Subjective;
he states everything feels worse today, but he is resting comfortably in the bed and has a regular rr which is a big improvement from yesterday
TTE: 02/12/24:
Normal LV size with low normal systolic function and no regional wall motion
abnormalities.
LVEF is 50-55% by Sandhu's method of discs.
In limited views, RV appears normal with normal systolic function.
No significant valvular disease.
No prior study available for comparison.
Physical Exam
Vital Signs/Labs
Vital Signs
Temp Pulse Resp BP Pulse Ox
98.3 F 92 18 126/68 98
02/14/24 03:29 02/14/24 07:30 02/14/24 07:30 02/14/24 03:29 02/14/24 07:30
02/13/24 02/14/24 02/15/24
06:59 06:59 06:59
Actual Weight 95.424 kg 89.131 kg
02/14/24 06:51
02/14/24 06:51
Magnesium 1.9 mg/dl (1.6-2.3) 02/14/24 06:51
TSH 1.64 uIU/ml (0.47-4.68) 02/13/24 08:42
02/12/24
10:05
Tzo-E-Kndgcofagna Pept 622
LAB Results
02/12/24 02/12/24 02/12/24
10:05 16:02 22:39
Troponin I 0.040 H* Cancelled 0.056 H*
02/13/24 02/13/24 02/13/24
08:42 12:29 20:37
Troponin I 0.039 H* 0.040 H* 0.032
02/14/24 02/14/24
01:00 07:00
Troponin I Cancelled Cancelled
Physical Exam
Constitutional: No acute distress
Cardiovascular: Rhythm & rate is regular, Pedal edema is absent and JVD pressure is normal
Respiratory: Respiratory effort normal, Lungs clear to auscul., Wheeze Absent and Crackles Absent
Neuro/Psych: AO x 3
Data Reviewed
-
Date of Service: February 14, 2024
Medical Decision Making: Review of Case with other Provider (d/w Dr Eckert and nurse Lottie)
EKG: Other (sinus/st/pvc)
[2024-02-14] MEDS: ALDACTONE 12.5 MG PO (08:30)
[2024-02-14] MEDS: KCL 20 MEQ PO (08:55)
--- NOTE | 2024-02-14 14:33 | CM ---
Patient seen bedside with son and daughter in law, family left so CM could meet with patient. CM discussed PT recommendations of SNF, patient agreeable to referral to [facility]. Patient not agreeable at this time to other referrals to be sent out.
CM will send referral in [facility], will continue to follow for all discharge planning needs.
Plan; SNF pending acceptance, will require auth.
--- NOTE | 2024-02-14 14:47 | W.PN.PUL3 ---
Today's Communication / Plan
-
Continue diuretics
Continue antibiotics for UTI
wean off oxygen
Physical therapy
May need anxiolytics
Incentive spirometer
Assessment
-
83-year-old male with history of hypertension, distant history of prostate cancer coronary disease with stent 22 years ago, with mechanical fall. Patient found to have possible UTI but developed increased oxygen requirement with chest x-ray
suggestive of heart failure. We are asked to comment on pulmonary process
Bilateral interstitial changes
Suspected pulmonary edema
Status post mechanical fall
Likely due to weakness
Suspected UTI, positive urine culture
Abnormal UA
Elevated troponin
Sinus tachycardia
Conditions present prior to admission
Coronary disease history of stent
98-hyex-ronl history of smoking, quit 1989
Former alcohol use, quit
Suspected sleep disordered breathing
Plan/recommendations
Remains on low rate supplemental oxygen. Patient was 98% on room air.
Patient states that he is feeling anxious. May be contributing to shortness of breath.
Lung exam is clear, moving good air on 02/14/2024.
-
Patient is clinically improved. Clinical picture suggest pulmonary edema post IV fluid resuscitation.
CT chest negative for PE earlier during this admission.
Mildly elevated troponin noted
Responded to diuresis
Chest x-ray 02/14/2024 Reviewed, showed improvement in pulmonary edema pattern.
-
Wean off oxygen
Patient feels extremely weak, likely contributing to his shortness of breath symptoms.
Physical therapy as able
Echocardiogram and cardiology correspondence does not suggest significant cardiomyopathy or evidence of heart failure
However, patient did receive 2-1/2 L of fluid since admission. This may have contributed to her pulmonary edema
There may have been a component of diastolic dysfunction
IV diuretics per cardiology
No indication for antibiotics from the pulmonary perspective.
On IV antibiotics with cefepime per infectious disease for urinary process.
No additional recommendation from the pulmonary perspective as the patient is improving.
Continue with cardiac management.
-
Home oxygen assessment prior to discharge.
Subjective Data
-
Date of Service:
Date of Service: February 14, 2024
Chief Complaint: Pulmonary Follow Up (Hypoxemic respiratory failure-heart failure)
Subjective:
Complaining of shortness of breath, difficulty taking a deep breath even at rest. Feels anxious.
Remains on supplemental oxygen
Denies phlegm production
Denies hemoptysis
Review of Systems
Cardiopulmonary: Dyspnea (improved)
GI: Abdominal Pain (n) and Nausea (n)
Neuro: Headache (n)
Objective Data
Data Reviewed
Vital Signs / I&O / Oxygen:
Vital Signs
Temp Pulse Resp BP Pulse Ox
98.8 F 93 18 140/88 97
02/14/24 11:20 02/14/24 11:30 02/14/24 11:20 02/14/24 11:20 02/14/24 11:30
Intake and Output
02/13/24 02/14/24 02/15/24
06:59 06:59 06:59
Intake Total 240 / 240 1060 / 1060
Output Total 400 / 400 1974 / 1974
Balance -160 / -160 -915 / -915
SaO2 97
Nasal Cannula flow liters per 4
minute
Physical Exam
General: Respiratory Distress (n) and Other (Patient appears anxious)
HEENT: Normocephalic
Cardiovascular: S1-S2
Respiratory: Clear
GI: Soft and Non Distended
Neurology: Awake, Oriented, AO x 3 and No Motor Deficits
Skin: Warm
Labs/Micro/Reports
Lab Data
02/14/24 06:51
02/14/24 06:51
Microbiology
02/12/24 07:48 Urine Urine Culture - Final
Escherichia coli
02/12/24 23:19 Blood/Venous Blood Culture - Preliminary
No Growth in 24 hours- Final report to follow
02/12/24 22:39 Blood/Venous Blood Culture - Preliminary
No Growth in 24 hours- Final report to follow
02/12/24 08:39 Nasal Swab Influenza Types A & B (CRESCENCIO) - Final
Negative for Influenza A & B, NAAT
Negative results must be combined with clinical observations
and patient history.
Nucleic Acid Amplification test (NAAT)performed on the
[employer] platform.
--- NOTE | 2024-02-14 15:18 | W.PN.ID1 ---
Date of Service
Date of Service: February 14, 2024
Today's Communication
Continue antibiotics. Transition to oral amoxicillin.
Assessment / Plan
Complicated urinary tract infection
Leukocytosis
Obstructive uropathy
Fever
CAD
HTN
Dyslipidemia
Urinary incontinence
Hx prostate CA
BPH
Bladder stones
Nephrolithiasis
Chronic pain
Osteoarthritis
Anxiety
Recommendations:
CT reviewed and shows no upper obstructive uropathy at present. Patient is now decompressed with Kiran catheter in place.
Urine culture showing pansensitive E. coli
Narrow antibiotics to amoxicillin 500 mg p.o. every 8 hours
Monitor white count & temperature curve.
Further recommendations as additional data is returned.
����������������������������������������������������������
Chief Complaint
-: UTI
Subjective / Review of Systems
Patient seen and examined. Patient reports ongoing shortness of breath and noted to have some conversational dyspnea.
Review of Systems: No Fever and No Chills
Vital Signs / Physical Exam
Vital Signs
Vital Signs
Temp Pulse Resp BP Pulse Ox
98.4 F 98 20 142/77 95
02/14/24 15:09 02/14/24 15:09 02/14/24 15:09 02/14/24 15:09 02/14/24 15:09
Physical Exam
Constitutional: No Acute Distress, Comfortable and Non-toxic
Eyes: Sclera Anicteric
Cardiovascular: S1/S2; Negative S3/S4
Pulmonary: Other (Mildly labored); Negative Rhonchi
Gastrointestinal: Soft, Non Tender and Non Distended
Genito-Urinary: Kiran and Clear Urine; Negative Turbid Urine
Neurological: Awake and Alert
Psychological: Calm
Objective Data
Lab Data
Lab Results
02/14/24 06:51
02/14/24 06:51
Estimated Creat Clear 82 ml/min 02/14/24 06:51
Lactic Acid 1.5 mmol/L (0.7-2.0) 02/12/24 23:19
Total Bilirubin 1.4 mg/dl (0.2-1.3) H 02/12/24 04:54
AST 26 U/L (17-59) 02/12/24 04:54
ALT 20 U/L (0-50) 02/12/24 04:54
Alkaline Phosphatase 51 U/L (38-126) 02/12/24 04:54
Most recent labs reviewed.
Micro Results:
02/12/24 07:48 Urine Culture - Final
Urine Escherichia coli
02/12/24 23:19 Blood Culture - Preliminary
Blood/Venous No Growth in 24 hours- Final report to follow
02/12/24 22:39 Blood Culture - Preliminary
Blood/Venous No Growth in 24 hours- Final report to follow
02/12/24 08:39 Influenza Types A & B (CRESCENCIO) - Final
Nasal Swab Negative for Influenza A & B, NAAT
Negative results must be combined with clinical observations
and patient history.
Nucleic Acid Amplification test (NAAT)performed on the
[employer] platform.
Imaging:
02/12/2024 CT abdomen/pelvis without contrast: No significant acute abnormality identified in the abdomen or pelvis. No enlarged lymph nodes, free fluid or free air. Diverticulosis is noted without evidence for diverticulitis. Tiny nonobstructing
lower pole left renal calculus measuring up to 4 mm is noted. No hydronephrosis seen. Spleen, adrenal glands and pancreas are unremarkable. Please see full dictation for additional detail.
--- NOTE | 2024-02-14 16:33 | W.PN.HOSP.TC ---
Today's Communication/Plan
-
Continue IV diuresis, antibiotics
Home Oxygen assessment tomorrow
PT/OT, discharge planning
Assessment / Plan
Assessment / Plan
Physical Exam
General: No Apparent Distress and Conversant
HEENT: Normocephalic and Moist mucous membranes
Respiratory: Decreased Breath Sounds, Mild Wheezing, Crackles
Cardiac: S1/S2, Regular Rate and Rhythm
GI: Soft, Non Tender and Normal Bowel Sounds
Musculoskeletal: No Cyanosis and No Edema
Skin: Warm and Dry
Neuro: Awake, Alert, AO x 3, Nonfocal/grossly intact and Cranial Nerves Intact
Psych: Calm and Intact Judgment/Insight
Assessment/Plan
Presentation with weakness, fall
Complicated urinary tract infection
Leukocytosis
Sepsis
Lactic Acidosis - RESOLVED
Acute Hypoxic Respiratory Insufficiency
Dyspnea
Tachycardia
-Initial CT and Chest X-Ray imaging results noted
-Suspected UTI with history of bladder stones and prostate cancer, prostatic enlargement
-Does not use or require oxygen at home, but requiring 4 L of oxygen here
-Home oxygen assessment
-Given tachycardia, shortness of breath, hypoxia, history of cancer, checked CT Chest PE --> no PE
-BNP, echocardiogram
-Status post Cefepime. And status post Rocephin.
-Now on Amoxicillin 500 mg p.o. every 8 hours -- continue
-Blood cultures
-Urine culture growing gram negative bacilli
-COVID and Flu tests negative
-Orthostatic vital signs
-Neuro-checks
-Per urology: Plan for discharge with Kiran in place to complete antibiotic course, and outpatient follow up for cystoscopy and stone removal procedure
Acute HFpEF
-Continue IV diuresis
-Continue ALEXANDRIA-I
-Spironolactone 12.5 mg daily added by cardiology, appreciate their evaluation and recommendations
-No sglt2i given patient's UTI
Coronary artery disease with history of cardiac stent 30 years ago (per patient's daughter)
Aortic atherosclerosis
-Patient has not seen a tapping machine operator automatic in decades as per patient and his daughter
-Continue home statin and ALEXANDRIA inhibitor
-Echo noted
-Appreciate cardiology, IV Lasix given pulmonary edema
-Aspirin 81 mg daily recommended by tapping machine operator automatic --> Aspirin has been started
Hypokalemia
-Potassium replaced
-Continue to monitor BMP
Hypertension
-Continue Lisinopril
Hyperlipidemia
-Continue Atorvastatin
Urinary incontinence for the past 6 months
History of prostate cancer 8 to 10 years prior (as per patient's daughter)
Benign Prostatic Hyperplasia
-Continue home Finasteride and Terazosin
History of large urethral stones and bladder stones (status post cystoscopy, laser lithotripsy and extraction of urethral stones and complex cystolithotomy in 2019)
Chronic pain
Osteoarthritis
-Per patient's daughter patient takes Celecoxib and prn Tramadol for pain
Constipation
-Bowel regimen
Anxiety
-Continue Prozac
DVT Prophylaxis: Lovenox
Code Status: Full Code
Anticipated Discharge: 24 - 48 hours
Subjective/Interval History
-
Date of Service: February 14, 2024
Patient was seen and examined. He reports he is still feeling not too great.
Objective Data
-
Labs:
Laboratory Results
02/14/24 02/14/24
06:51 20:00
WBC 14.9 H
Hgb 13.1
Hct 37.8 L
Plt Count 110 L
Sodium 139 Pending
Potassium 3.4 L Pending
Chloride 102 Pending
Carbon Dioxide 28 Pending
BUN 18 Pending
Creatinine 0.7 Pending
Glucose 94 Pending
Calcium 8.8 Pending
Vital Signs:
Vital Signs
Temp Pulse Resp BP Pulse Ox
98.4 F 94 20 142/77 98
02/14/24 15:09 02/14/24 15:30 02/14/24 15:09 02/14/24 15:09 02/14/24 15:30
I&O
02/13/24 02/14/24 02/15/24
06:59 06:59 06:59
Intake Total 240 / 240 1060 / 1060
Output Total 400 / 400 1974
Balance -160 / -160 -915 / -915
[2024-02-14] MEDS: ZESTRIL 5 MG PO (17:31)
[2024-02-14] MEDS: LOVENOX 40 MG SC (17:32)
[2024-02-14] MEDS: AMOXIL 500 MG PO ×2 (17:32→23:26)
[2024-02-14] MEDS: LIPITOR 40 MG PO (17:32)
[2024-02-14] MEDS: ULTRAM 75 MG PO ×2 (17:41→23:28)
--- NOTE | 2024-02-14 21:00 | W.PN.UPDATE ---
Update Note
Progress Note Update
Reported by the nursing staff that the patient was anxious during daytime.
Patient currently on prozac daily for anxiety.
Per pulmonary`s note patient may need anxiolytics. Per staff, daughter called and concerning about the patient`s anxiety. Will add small dose of PO ativan PRN for anxiety.
[2024-02-14] MEDS: HYTRIN 10 MG PO (21:48)
[2024-02-14 22:06] LABS: Blood Urea Nitrogen 15 mg/dl (9-20); Calcium 9.2 mg/dl (8.4-10.2); Carbon Dioxide 28 mmol/L (22-30); Chloride 100 mmol/L (98-107); Estimated Creatinine Clearance 96 ml/min; Glucose 109 mg/dl (70-99); Potassium 3.5 mmol/L (3.5-5.1); Sodium 136 mmol/L (135-145); eGFR > 60.00
[2024-02-14] MEDS: ATIVAN 0.25 MG PO (23:26)
[2024-02-15] VITALS (8 sets, daily range): BP systolic 115–155; BP diastolic 64–98; PULSE 97–113; O2SAT 95; BMI 31.6
[2024-02-15] MEDS: DUONEB 3 ML INH ×5 (04:44→20:04)
[2024-02-15 08:20] LABS: % Basophils 0.5 % (0-2); % Eosinophils 0.9 % (0-6); % Immature Granulocytes 1.2 % (0-0.5); % Lymphocytes 8.2 % (20.5-51.1); % Monocytes 9.6 % (1.7-9.3); % Neutrophils 79.6 % (42.2-75.2); Absolute Basophils 0.1 10^3/uL (0-0.2); Absolute Eosinophils 0.1 10^3/uL (0-0.7); Absolute Immature Granulocytes 0.1 10^3/uL (0-0.05); Absolute Lymphocytes 0.9 10^3/uL (1.2-3.4); Absolute Monocytes 1.1 10^3/uL (0.1-0.6); Absolute Neutrophils 8.9 10^3/uL (1.4-6.5); Hematocrit 40.8 % (39.0-52.0); Hemoglobin 14.2 g/dL (13.0-18.0); Mean Corp Hgb Conc. 34.8 g/dL (33.0-37.0); Mean Corpuscular Hgb 30.1 pg (27.0-31.0); Mean Corpuscular Volume 86.4 fL (80.0-94.0); Mean Platelet Volume 9.5 fL (7.4-10.4); Nucleated Red Blood Cells % 0 % (-); Platelet Count 133 10^3/uL (130-400); Red Blood Cell Count 4.72 10^6/uL (4.70-6.10); Red Cell Dist. Width 13.5 % (11.5-14.5); White Blood Cell Count 11.2 10^3/uL (4.8-10.8)
[2024-02-15 09:10] LABS: Blood Urea Nitrogen 13 mg/dl (9-20); Calcium 9.2 mg/dl (8.4-10.2); Carbon Dioxide 30 mmol/L (22-30); Chloride 97 mmol/L (98-107); Estimated Creatinine Clearance 97 ml/min; Glucose 97 mg/dl (70-99); Potassium 3.6 mmol/L (3.5-5.1); Sodium 138 mmol/L (135-145); eGFR > 60.00
[2024-02-15] MEDS: ALDACTONE 12.5 MG PO (09:42)
[2024-02-15] MEDS: LASIX 40 MG IV ×2 (09:42→15:45)
[2024-02-15] MEDS: PROZAC 40 MG PO (09:43)
[2024-02-15] MEDS: AMOXIL 500 MG PO ×3 (09:44→23:21)
[2024-02-15] MEDS: LIDOCAINE 4% PATCH 1 PATCH TOPICAL (09:44)
[2024-02-15] MEDS: PROSCAR 5 MG PO (09:44)
[2024-02-15] MEDS: LOW STRENGTH ASPIRIN 81 MG PO (09:44)
--- NOTE | 2024-02-15 10:17 | W.PN.CD ---
Today's Communication / Plan
-
iv diuresis stop tomorrow
Impression / Plan
-
83 year old male with history of CAD, urethral and bladder stones s/p cystoscopy, laser lithotripsy and extraction of urethral stones and complex cystolithotomy in 2019, prostate cancer, presented with sepsis secondary to UTI. Cardiology is
consulted for persistent shortness of breath with increase oxygen requirement.
HFpEf: acute
-IV diuresis today stop tomorrow
-continue ACEI
-will add MRA--spironolactone 12.5mg daily
-no sglt2i with UTI
- unclear what his diuretic plan for home will be, favor for now PRN dosing with lasix 40 mg for weight gain as this could be related to UTI
- home weight typically about 200 lbs
Nonischemic myocardial injury in the setting of sepsis:
No chest pain, EKG without changes.
CAD: Chronic, given history of remote stenting would add aspirin 81 mg a day. Continue medical management.
Sepsis secondary to UTI
HTN: chronic, stable
Sepsis due to UTI:
-per medicine and urology
Subjective;
he states everything feels worse today, but he is resting comfortably in the bed and has a regular rr which is a big improvement from yesterday
TTE: 02/12/24:
Normal LV size with low normal systolic function and no regional wall motion
abnormalities.
LVEF is 50-55% by Sandhu's method of discs.
In limited views, RV appears normal with normal systolic function.
No significant valvular disease.
No prior study available for comparison.
Physical Exam
Vital Signs/Labs
Vital Signs
Temp Pulse Resp BP Pulse Ox
98.4 F 91 20 150/87 95
02/15/24 07:00 02/15/24 07:45 02/15/24 07:45 02/15/24 07:00 02/15/24 07:45
02/14/24 02/15/24 02/16/24
06:59 06:59 06:59
Actual Weight 196 lb 8 oz 201 lb 5 oz
02/15/24 07:44
02/15/24 07:44
Magnesium 1.9 mg/dl (1.6-2.3) 02/14/24 06:51
TSH 1.64 uIU/ml (0.47-4.68) 02/13/24 08:42
02/12/24
10:05
Xzk-J-Tqcvezmomly Pept 622
LAB Results
02/12/24 02/12/24 02/12/24
10:05 16:02 22:39
Troponin I 0.040 H* Cancelled 0.056 H*
02/13/24 02/13/24 02/13/24
08:42 12:29 20:37
Troponin I 0.039 H* 0.040 H* 0.032
02/14/24 02/14/24
01:00 07:00
Troponin I Cancelled Cancelled
Physical Exam
Constitutional: No acute distress
EENT: Anicteric
Cardiovascular: Rhythm & rate is regular and Pedal edema is absent
Respiratory: Respiratory effort normal and Lungs clear to auscul.
GI: Soft
Neuro/Psych: AO x 3
Data Reviewed
-
Date of Service: February 15, 2024
EKG: Tracing Personally Visualized and interpreted (sr)
Echo: Report Reviewed by me
Labs: Labs Reviewed by me
[2024-02-15] MEDS: ULTRAM 75 MG PO ×3 (10:55→23:22)
--- NOTE | 2024-02-15 12:30 | W.PN.PUL3 ---
Today's Communication / Plan
-
Wean off oxygen
Continue IV diuresis
Physical therapy
Discharge planning
Sign off
Assessment
-
83-year-old male with history of hypertension, distant history of prostate cancer coronary disease with stent 22 years ago, with mechanical fall. Patient found to have possible UTI but developed increased oxygen requirement with chest x-ray
suggestive of heart failure. We are asked to comment on pulmonary process
Bilateral interstitial changes
Suspected pulmonary edema
Status post mechanical fall
Likely due to weakness
Suspected UTI, positive urine culture
Abnormal UA
Elevated troponin
Sinus tachycardia
Conditions present prior to admission
Coronary disease history of stent
70-smjr-ahst history of smoking, quit 1989
Former alcohol use, quit
Suspected sleep disordered breathing
Plan/recommendations
Remains on low rate supplemental oxygen. Patient was 98% on room air.
Home oxygen assessment. Hopefully can be weaned off.
-
Again, anxiety may be contributing to shortness of breath symptoms
Lung exam is clear, moving good air on 02/15/2024.
-
Patient is clinically improved. Clinical picture suggest pulmonary edema post IV fluid resuscitation.
CT chest negative for PE earlier during this admission.
Mildly elevated troponin noted
Responded to diuresis
Chest x-ray 02/14/2024 showed improvement in pulmonary edema pattern.
-
Wean off oxygen
Patient feels extremely weak, likely contributing to his shortness of breath symptoms.
Physical therapy as able
Echocardiogram and cardiology correspondence does not suggest significant cardiomyopathy or evidence of heart failure
However, patient did receive 2-1/2 L of fluid since admission. This may have contributed to her pulmonary edema
There may have been a component of diastolic dysfunction
IV diuretics per cardiology
Follow electrolytes.
No indication for antibiotics from the pulmonary perspective.
On IV antibiotics with cefepime per infectious disease for urinary process.
No additional recommendation from the pulmonary perspective as the patient is improving.
Continue with cardiac management.
-
Home oxygen assessment prior to discharge.
-
I will sign off at this point.
Please call with questions.
Subjective Data
-
Date of Service:
Date of Service: February 15, 2024
Chief Complaint: Pulmonary Follow Up (Hypoxemic respiratory failure-heart failure)
Subjective:
Continues to report some anxiety
Denies any cough or phlegm production
Review of Systems
Cardiopulmonary: Dyspnea and Dyspnea on Exertion
Objective Data
Data Reviewed
Vital Signs / I&O / Oxygen:
Vital Signs
Temp Pulse Resp BP Pulse Ox
98.4 F 98 20 150/87 97
02/15/24 07:00 02/15/24 11:35 02/15/24 11:35 02/15/24 07:00 02/15/24 11:35
Intake and Output
02/14/24 02/15/24 02/16/24
06:59 06:59 06:59
Intake Total 1060 / 1060 960 / 960
Output Total 1974 / 1974 1900 / 1900
Balance -915 / -915 -940 / -940
SaO2 97
Nasal Cannula flow liters per 4
minute
Physical Exam
General: Respiratory Distress (n) and Other (Patient appears anxious)
HEENT: Normocephalic
Cardiovascular: S1-S2
Respiratory: Clear
GI: Soft and Non Distended
Neurology: Awake, Oriented, AO x 3 and No Motor Deficits
Skin: Warm
Labs/Micro/Reports
Lab Data
02/15/24 07:44
02/15/24 07:44
Microbiology
02/12/24 23:19 Blood/Venous Blood Culture - Preliminary
No Growth in 48 hours- Final report to follow
02/12/24 22:39 Blood/Venous Blood Culture - Preliminary
No Growth in 48 hours- Final report to follow
02/12/24 07:48 Urine Urine Culture - Final
Escherichia coli
02/12/24 08:39 Nasal Swab Influenza Types A & B (CRESCENCIO) - Final
Negative for Influenza A & B, NAAT
Negative results must be combined with clinical observations
and patient history.
Nucleic Acid Amplification test (NAAT)performed on the
[employer] platform.
[2024-02-15] MEDS: ATIVAN 0.25 MG PO (13:53)
--- NOTE | 2024-02-15 14:43 | CM ---
[facility] can offer bed to pt tomorrow.
Auth received. Ref # [id number] beginning tomorrow w/ [facility] 02/19
Ambulance auth received, ref # [id number]
[facility] updated
Transport forms in chart. claims clerk to arrange transport
[facility]
Report: [phone]

Plan: [facility] SNF via ambulance
--- NOTE | 2024-02-15 15:16 | W.PN.HOSP.TC ---
Today's Communication/Plan
-
Continue IV Lasix for CHF
Home O2 assessment
Assessment / Plan
Assessment / Plan
Physical Exam
General: No Apparent Distress and Conversant
HEENT: Normocephalic and Moist mucous membranes
Respiratory: Decreased Breath Sounds, Mild Wheezing, Crackles
Cardiac: S1/S2, Regular Rate and Rhythm
GI: Soft, Non Tender and Normal Bowel Sounds
Musculoskeletal: No Cyanosis and No Edema
Skin: Warm and Dry
Neuro: Awake, Alert, AO x 3, Nonfocal/grossly intact and Cranial Nerves Intact
Psych: Calm and Intact Judgment/Insight
Assessment/Plan
Presentation with weakness, fall
Complicated E. coli urinary tract infection
Leukocytosis
Sepsis
Lactic Acidosis - RESOLVED
Acute Hypoxic Respiratory Insufficiency
Dyspnea
Tachycardia
-Initial CT and Chest X-Ray imaging results noted
-Suspected UTI with history of bladder stones and prostate cancer, prostatic enlargement
-Does not use or require oxygen at home, but requiring 4 L of oxygen here
-Home oxygen assessment
-Given tachycardia, shortness of breath, hypoxia, history of cancer, checked CT Chest PE --> no PE
-BNP, echocardiogram noted
-Status post Cefepime. And status post Rocephin.
-Now on Amoxicillin 500 mg p.o. every 8 hours -- continue
-Blood cultures with no growth to date
-Urine culture grew pansensitive E. coli
-COVID and Flu tests negative
-Orthostatic vital signs
-Per urology: Plan for discharge with Kiran in place to complete antibiotic course, and outpatient follow up for cystoscopy and stone removal procedure
Acute HFpEF
-Continue IV diuresis
-Continue ALEXANDRIA-I
-Spironolactone 12.5 mg daily
-No sglt2i given patient's UTI
Coronary artery disease with history of cardiac stent 30 years ago (per patient's daughter)
Aortic atherosclerosis
-Patient had not seen a semiautomatic stitcher operator in decades as per patient and his daughter
-Continue home statin and ALEXANDRIA inhibitor
-Echo noted
-Appreciate cardiology
-Aspirin 81 mg daily recommended by semiautomatic stitcher operator --> Aspirin has been started
Hypokalemia
-Potassium replaced
-Continue to monitor BMP
Hypertension
-Continue Lisinopril
Hyperlipidemia
-Continue Atorvastatin
Urinary incontinence for the past 6 months
History of prostate cancer 8 to 10 years prior (as per patient's daughter)
Benign Prostatic Hyperplasia
-Continue home Finasteride and Terazosin
History of large urethral stones and bladder stones (status post cystoscopy, laser lithotripsy and extraction of urethral stones and complex cystolithotomy in 2019)
Chronic pain
Osteoarthritis
-Per patient's daughter patient takes Celecoxib and prn Tramadol for pain
Constipation
-Bowel regimen
Anxiety
-Continue Prozac
DVT Prophylaxis: Lovenox
Code Status: Full Code
Anticipated Discharge: 24 - 48 hours
Subjective/Interval History
-
Date of Service: February 15, 2024
Patient was seen and examined. He still has some shortness of breath, still generalized weakness.
Objective Data
-
Labs:
Laboratory Results
02/15/24
07:44
WBC 11.2 H
Hgb 14.2
Hct 40.8
Plt Count 133 D
Sodium 138
Potassium 3.6
Chloride 97 L
Carbon Dioxide 30
BUN 13
Creatinine 0.6 L
Glucose 97
Calcium 9.2
Vital Signs:
Vital Signs
Temp Pulse Resp BP Pulse Ox
97.8 F 98 20 123/74 97
02/15/24 11:00 02/15/24 11:35 02/15/24 11:35 02/15/24 11:00 02/15/24 11:35
I&O
02/14/24 02/15/24 02/16/24
06:59 06:59 06:59
Intake Total 1060 / 1060 960 / 960
Output Total 1974 190 / 1899
Balance -915 / -915 -940 / -940
--- NOTE | 2024-02-15 15:31 | PN.CDI ---
CDI
- -
CDI:
Physician Documentation Request
Admit Date: 02/12/24 09:55
Dear Doctor Mahi,
Patient admitted with sepsis.
Lactic acid 02/11 3.5
Please clarify which of the following most accurately describes the status of the patient's infection:
Sepsis only
Severe Sepsis
Other
Use of terms such as suspected, likely, concern for, or probable (associated with a specific diagnosis that is being evaluated, monitored, or treated as if it exists) are acceptable and can be coded in the inpatient setting, when documented at the
time of discharge.
Thank you,
Zari Thakkar RN, BSN
CDI Specialist
tiger text
Please use your independent medical judgment in providing your response.
--- NOTE | 2024-02-15 15:36 | PN.CDI ---
CDI
- -
CDI:
Physician Documentation Request
Admit Date: 02/12/24 09:55
Dear Doctor Mahi
Patient admitted with sepsis/UTI.
Diagnosis also include Acute Hypoxic Respiratory Insufficiency.
Documented vital signs show patient on 5 liters at time.
Nursing assessment 02/13 states respiratory patterns 'labored, tachypnea, dyspnea on exertion' patient was on 5 L
Please clarify which of the following accurately represents the patient's respiratory status:
Acute respiratory failure- please indicate type
Hypoxia
Other
Additional information for Respiratory Failure:
Recognized criteria for Respiratory Failure (Source: [facility] Feb 2013)
ABGs: (1 or more) Symptoms Please indicate type if known
1. p)2 <60 or RA SPO2 <91% on RA 1. Tachypnea, SOB, dyspnea Hypoxic
2. pCO2 50 and pH <7.35 2. Use of accessory muscles Hypercapnic
3. pO2 decrease of pCO2 increase by 3. Pallor or cyanosis Hypoxic and Hypercapnic
10 mmHg from baseline if known 4. Anxiety or restlessness Unable to determine
5. Unable to speak in full sentences
Supplemental O2 of > 40% (5LPM) Intubation is not required
Use of terms such as suspected, likely, concern for, or probable (associated with a specific diagnosis that is being evaluated, monitored, or treated as if it exists) are acceptable and can be coded in the inpatient setting, when documented at the
time of discharge.
Thank you,
Zari Thakkar RN, BSN
CDI Specialist
tiger text
Please use your independent medical judgment in providing your response.
[2024-02-15] MEDS: ZESTRIL 5 MG PO (17:33)
[2024-02-15] MEDS: LOVENOX 40 MG SC (17:33)
[2024-02-15] MEDS: LIPITOR 40 MG PO (17:33)
[2024-02-15] MEDS: HYTRIN 10 MG PO (23:19)
[2024-02-16] MEDS: ATIVAN 0.25 MG PO (02:57)
[2024-02-16 03:47] VITALS: BP 117/76
[2024-02-16 06:00] VITALS: BMI 29.7
[2024-02-16 07:00] VITALS: BP 162/95
[2024-02-16 07:31] LABS: % Basophils 0.9 % (0-2); % Immature Granulocytes 4.1 % (0-0.5); % Lymphocytes 17.7 % (20.5-51.1); % Monocytes 11.7 % (1.7-9.3); % Neutrophils 63.6 % (42.2-75.2); Absolute Basophils 0.1 10^3/uL (0-0.2); Absolute Eosinophils 0.2 10^3/uL (0-0.7); Absolute Immature Granulocytes 0.4 10^3/uL (0-0.05); Absolute Lymphocytes 1.7 10^3/uL (1.2-3.4); Absolute Monocytes 1.1 10^3/uL (0.1-0.6); Mean Corpuscular Hgb 29.8 pg (27.0-31.0); Mean Corpuscular Volume 85.1 fL (80.0-94.0); Mean Platelet Volume 9.5 fL (7.4-10.4); Nucleated Red Blood Cells % 0 % (-); Platelet Count 143 10^3/uL (130-400); Red Cell Dist. Width 13.5 % (11.5-14.5); White Blood Cell Count 9.4 10^3/uL (4.8-10.8)
[2024-02-16 07:47] LABS: Calcium 8.9 mg/dl (8.4-10.2); Glucose 93 mg/dl (70-99); Potassium 3.1 mmol/L (3.5-5.1)
[2024-02-16 07:56] LABS: Blood Urea Nitrogen 13 mg/dl (9-20); Carbon Dioxide 30 mmol/L (22-30); Chloride 96 mmol/L (98-107); Estimated Creatinine Clearance 94 ml/min; Sodium 137 mmol/L (135-145); eGFR > 60.00
[2024-02-16] MEDS: DUONEB 3 ML INH ×3 (07:56→15:04)
[2024-02-16] MEDS: LOW STRENGTH ASPIRIN 81 MG PO (08:55)
[2024-02-16] MEDS: AMOXIL 500 MG PO ×2 (08:55→15:32)
[2024-02-16] MEDS: ALDACTONE 12.5 MG PO (08:55)
[2024-02-16] MEDS: PROSCAR 5 MG PO (08:55)
[2024-02-16] MEDS: LIDOCAINE 4% PATCH 1 PATCH TOPICAL (08:55)
[2024-02-16] MEDS: PROZAC 40 MG PO (08:57)
[2024-02-16] MEDS: LASIX IV (09:02)
[2024-02-16] MEDS: ULTRAM 75 MG PO ×2 (09:06→15:32)
[2024-02-16] MEDS: KCL 40 MEQ PO (10:05)
[2024-02-16] MEDS: LASIX 40 MG PO (10:05)
[2024-02-16 11:00] VITALS: BP 118/70
--- NOTE | 2024-02-16 11:25 | CM ---
Addendum entered by Janet Nolen 02/16/24 12:12:
Transport scheduled for 4:30-5:00 p.m. [facility] updated.
Addendum entered by Janet Nolen 02/16/24 11:59:
ROHIT spoke with Polina from , was able to switch facilities to [facility], otherwise all authorization information remains the same.
Auth received. Ref # [id number] 02/15-w/ NRD 02/19
Ambulance auth received, ref # [id number]
Chayito [facility] updated, home O2 assessment completed, does not need O2. Daughter updated at bedside. CM will schedule ambulance transport.
[facility]
Report: [phone]

Original Note:
CM met with patient, daughter, and son in law bedside. Daughter inquiring if patient can go to [facility]. CM explained auth has been approved to [facility] as patient requested. Daughter reports patient was not 'with it', would like
additional referrals sent and auth changed if possible ([facility], [facility], [facility]). ROHIT spoke with Chayito at [facility], can accept patient for rehab if auth can be changed. ROHIT placed call to patients insurance, spoke with Margarita
per urgent discharge planning, awaiting return call in regards to switching facilities for auth.
Plan; SNF, awaiting insurance to change auth facility from [facility] to [facility].
[2024-02-16 11:33] LABS: Magnesium 1.9 mg/dl (1.6-2.3)
--- NOTE | 2024-02-16 11:52 | W.PN.CD ---
Today's Communication / Plan
-
Try Lasix 40 daily
increase Aldactone to 25 a day
K+ Repleted already and repeat pending
Will need BMP 2 and 4 weeks from discharge to assure K+/Cr OK on new regimen
Impression / Plan
-
83 year old male with history of CAD, urethral and bladder stones s/p cystoscopy, laser lithotripsy and extraction of urethral stones and complex cystolithotomy in 2019, prostate cancer, presented with sepsis secondary to UTI. Cardiology is
consulted for persistent shortness of breath with increase oxygen requirement.
HFpEf
- Improved
- Will try Lasix 40 mg PO daily => not sure if he will need Lasix at home
- Increase Aldactone to 25 mg daily
- Continue ALEXANDRIA-I, later move to ARB or ARNI
- Not planning SGLT2-I with UTI, reevaluate as outpatient
- Need to determine goal weight, hard to know if he really went from 91.3 kg to 86 kg overnight
Nonischemic myocardial injury in the setting of sepsis, peak trop 0.056
CAD, remote stenting, asa/satin
Improved infection/UTI
HTN
Subjective;
Feels much better
TTE: 02/12/24:
Normal LV size with low normal systolic function and no regional wall motion
abnormalities.
LVEF is 50-55% by Sandhu's method of discs.
In limited views, RV appears normal with normal systolic function.
No significant valvular disease.
No prior study available for comparison.
Physical Exam
Vital Signs/Labs
Vital Signs
Temp Pulse Resp BP Pulse Ox
98.1 F 101 20 162/95 95
02/16/24 07:00 02/16/24 11:23 02/16/24 11:23 02/16/24 07:00 02/16/24 11:23
02/15/24 02/16/24 02/17/24
06:59 06:59 06:59
Actual Weight 91.314 kg 85.984 kg
02/16/24 06:25
Magnesium 1.9 mg/dl (1.6-2.3) 02/16/24 10:57
TSH 1.64 uIU/ml (0.47-4.68) 02/13/24 08:42
02/12/24
10:05
Qut-[id number]-Zccdgqgerfg Pept 622
LAB Results
02/13/24 02/13/24 02/14/24
12:29 20:37 01:00
Troponin I 0.040 H* 0.032 Cancelled
02/14/24
07:00
Troponin I Cancelled
Physical Exam
Constitutional: No acute distress
EENT: Anicteric
Cardiovascular: Rhythm & rate is regular and Pedal edema is absent
Respiratory: Respiratory effort normal and Lungs clear to auscul.
GI: Soft and Distention absent
Data Reviewed
-
Date of Service: February 16, 2024
[2024-02-16 11:54] VITALS: O2SAT 92; O2SAT 93
--- NOTE | 2024-02-16 12:56 | W.PN.HOSP.TC ---
Today's Communication/Plan
-
Discharge today
Assessment / Plan
Assessment / Plan
Physical Exam
General: No Apparent Distress and Conversant
HEENT: Normocephalic and Moist mucous membranes
Respiratory: Clear to Auscultation Bilaterally
Cardiac: S1/S2, Regular Rate and Rhythm
GI: Soft, Non Tender and Normal Bowel Sounds
Musculoskeletal: No Cyanosis and No Edema, No swelling or tenderness of the lower extremities
Skin: Warm and Dry
Neuro: Awake, Alert, AO x 3, Nonfocal/grossly intact and Cranial Nerves Intact
Psych: Calm and Intact Judgment/Insight
Assessment/Plan
Presentation with weakness, fall
Complicated E. coli urinary tract infection
Recurrent Urethral Stones
Leukocytosis
Sepsis
Lactic Acidosis - RESOLVED
Dyspnea
Mild Tachycardia
-Initial CT and Chest X-Ray imaging results noted
-Suspected UTI with history of bladder stones and prostate cancer, prostatic enlargement
-Does not use or require oxygen at home, but requiring 4 L of oxygen here
-Home oxygen assessment --> saturating in the 90s both at rest and on ambulation
-Given tachycardia, shortness of breath, hypoxia, history of cancer, checked CT Chest PE --> no PE
-BNP, echocardiogram noted
-Status post Cefepime. And status post Rocephin.
-Now on Amoxicillin 500 mg p.o. every 8 hours -- continue through February 21, 2024 -- discussed this on 02/16/24 with ID and this duration of antibiotics is okay
-Blood cultures with no growth to date
-Urine culture grew pansensitive E. coli
-COVID and Flu tests negative
-Orthostatic vital signs
-Per urology: Plan for discharge with Kiran in place to complete antibiotic course, and outpatient follow up for cystoscopy and stone removal procedure.
-Follow-up with urology following discharge
Acute HFpEF
Acute Hypoxic Respiratory Failure - RESOLVED
-Status post IV diuresis
-Continue PO Lasix 40 mg daily
-Continue ALEXANDRIA-I
-Spironolactone increase to 25 mg daily which can help with hypokalemia
-No sglt2i given patient's UTI, also later consider transition to ARB or ARNI
Coronary artery disease with history of cardiac stent 30 years ago (per patient's daughter)
Aortic atherosclerosis
-Patient had not seen a crusher and blender operator in decades as per patient and his daughter
-Continue home statin and ALEXANDRIA inhibitor
-Echo noted
-Appreciate cardiology
-Aspirin 81 mg daily recommended by crusher and blender operator --> Aspirin has been started
Hypokalemia
-Potassium replaced
-Continue to monitor BMP
Hypertension
-Continue Lisinopril
Hyperlipidemia
-Continue Atorvastatin
Urinary incontinence for the past 6 months
History of prostate cancer 8 to 10 years prior (as per patient's daughter)
Benign Prostatic Hyperplasia
-Continue home Finasteride and Terazosin
History of large urethral stones and bladder stones (status post cystoscopy, laser lithotripsy and extraction of urethral stones and complex cystolithotomy in 2019)
Prostate Cancer
Chronic pain
Osteoarthritis
-Per patient's daughter patient takes Celecoxib and prn Tramadol for pain
Constipation
-Bowel regimen
Anxiety
-Continue Prozac
DVT Prophylaxis: Lovenox
Code Status: Full Code
More than 30 minutes spent in discharge including
Final examination of the patient
Summarizing hospital stay
Instructions for continuing care to all relevant caregivers
Preparation of discharge records, prescriptions, and referral forms
Total time spent (in minutes): 39
Anticipated Discharge: Today
Subjective/Interval History
-
Date of Service: February 16, 2024
Patient was seen and examined. He denied any chest pain, shortness of breath, any leg pain or any new leg swelling or leg redness.
Objective Data
-
Labs:
Laboratory Results
02/16/24 02/16/24
06:25 14:00
WBC 9.4
Hgb 14.0
Hct 40.0
Plt Count 143
Sodium 137 Pending
Potassium 3.1 L Pending
Chloride 96 L Pending
Carbon Dioxide 30 Pending
BUN 13 Pending
Creatinine 0.6 L Pending
Glucose 93 Pending
Calcium 8.9 Pending
Vital Signs:
Vital Signs
Temp Pulse Resp BP Pulse Ox
98.1 F 101 20 162/95 93
02/16/24 07:00 02/16/24 11:23 02/16/24 11:23 02/16/24 07:00 02/16/24 12:53
I&O
02/15/24 02/16/24 02/17/24
06:59 06:59 06:59
Intake Total 960 / 960 1080 / 1080
Output Total 1900 / 1900 1675 / 1675
Balance -940 / -940 -595 / -595
[2024-02-16 14:29] LABS: Blood Urea Nitrogen 14 mg/dl (9-20); Calcium 9.4 mg/dl (8.4-10.2); Carbon Dioxide 25 mmol/L (22-30); Chloride 98 mmol/L (98-107); Estimated Creatinine Clearance 94 ml/min; Glucose 112 mg/dl (70-99); Potassium 3.8 mmol/L (3.5-5.1); Sodium 134 mmol/L (135-145); eGFR > 60.00
[2024-02-16 15:00] VITALS: BP 115/55
[2024-02-16] MEDS: FLUAD (65 yr+) 2024-2025 FORMULA 0.5 ML IM (15:49)
[2024-02-16] MEDS: LOVENOX 40 MG SC (18:06)
[2024-02-16] MEDS: LIPITOR 40 MG PO (18:07)
[2024-02-16] MEDS: ZESTRIL 5 MG PO (18:07)
== END 2024-02-16 18:58 | DRG 871 ==
LOC: 4 WEST ACU 09:55
PROVIDERS: Emergency Medicine; ADMITTING PHYSICIAN Hospitalist; CONSULT PHYSICIAN Internal Medicine Cardiovascular Disease; CONSULT PHYSICIAN Internal Medicine Critical Care Medicine; CONSULT PHYSICIAN Urology; EMERGENCY PHYSICIAN Emergency Medicine; FAMILY PHYSICIAN Family Medicine; OTHER PHYSICIAN Internal Medicine Infectious Disease
DX: A41.9 Sepsis, unspecified organism (principal); I50.31 Acute diastolic (congestive) heart failure; J96.01 Acute respiratory failure with hypoxia; I5A Non-ischemic myocardial injury (non-traumatic); J81.1 Chronic pulmonary edema; N39.0 Urinary tract infection, site not specified; E87.20 Acidosis, unspecified; I11.0 Hypertensive heart disease with heart failure; S09.90XA Unspecified injury of head, initial encounter; B96.20 Unspecified Escherichia coli [E. coli] as the cause of diseases classified elsewhere; E78.00 Pure hypercholesterolemia, unspecified; F41.9 Anxiety disorder, unspecified; G89.29 Other chronic pain; I25.10 Atherosclerotic heart disease of native coronary artery without angina pectoris; Z95.5 Presence of coronary angioplasty implant and graft; N21.1 Calculus in urethra; K59.00 Constipation, unspecified; M19.90 Unspecified osteoarthritis, unspecified site; M54.50 Low back pain, unspecified; M54.30 Sciatica, unspecified side; N40.1 Benign prostatic hyperplasia with lower urinary tract symptoms; W18.30XA Fall on same level, unspecified, initial encounter; R91.8 Other nonspecific abnormal finding of lung field; Z79.899 Other long term (current) drug therapy; Z87.891 Personal history of nicotine dependence; Z87.442 Personal history of urinary calculi; Z85.46 Personal history of malignant neoplasm of prostate
CPT/HCPCS: 36600; 70450; 71045; 71046; 71275; 72125; 74176; 80048; 80053; 81003; 81015; 82550; 82607; 82805; 83605; 83735; 83880; 84153; 84443; 84484; 85025; 87040; 87077; 87086; 87186; 87502; 87811; 90662; 93005; 93306; 94640; 94761; 96361; 96374; 96375; 97162; 97166; 97530; 97535; 99285; G0008; Q9950; Q9967

== ENCOUNTER 2024-03-14 06:18 | Day surgery (SDC) | payer OTHER, SELFPAY ==
[2024-03-14 11:18] VITALS: BMI 28.8
[2024-03-14 11:19] VITALS: BMI 28.8
[2024-03-14 11:20] VITALS: BP 133/74
[2024-03-14 13:30] VITALS: BP 133/74; BP 148/71
[2024-03-14 13:45] VITALS: BP 153/76
[2024-03-14 14:00] VITALS: BP 140/85
[2024-03-14 14:15] VITALS: BP 139/79
== END 2024-03-14 14:58 | disposition home or self-care (01) ==
LOC: SDS 06:18
PROVIDERS: ATTENDING PHYSICIAN Urology
DX: N40.2 Nodular prostate without lower urinary tract symptoms (principal); R33.9 Retention of urine, unspecified; Z90.79 Acquired absence of other genital organ(s)
CPT/HCPCS: 52234; 88307